=== PATIENT | female | born 1955 | race Caucasian/White ===

== ENCOUNTER → 2022-04-02 09:56 | Outpatient (CLI) | payer OTHER, SELFPAY ==
[2022-04-02 11:51] LABS: COVID19 -Nasal RAPID Negative (Negative)
== END ==
PROVIDERS: Referring Provider Orthopaedic Surgery Foot and Ankle Surgery; Visit Provider Orthopaedic Surgery Foot and Ankle Surgery
DX: Z20.822 Contact with and (suspected) exposure to COVID-19 (principal)
CPT/HCPCS: 87635; C9803

== ENCOUNTER 2022-04-03 10:07 | Day surgery (SDC) | payer OTHER, SELFPAY ==
[2022-03-18 09:45] VITALS: BMI 34.0
[2022-04-03] VITALS (16 sets, daily range): BP systolic 99–119; BP diastolic 56–78; PULSE 60–110; RESP 12–18; TEMP 36.1–37.4; O2SAT 82–96; BMI 34.7
--- NOTE | 2022-04-03 06:00 | DI.RAD.S_ITS ---
PROCEDURE: XR KNEE LT 1TO2V INDICATIONS: prosthesis placement TECHNIQUE: 2 view(s) of the knee acquired. COMPARISON: None. FINDINGS: Bones: Patient is status post knee joint arthroplasty. Hardware components are in expected positions. Visualized bony structures are intact. Soft tissues: Overlying postoperative changes are noted. IMPRESSION: Postoperative knee arthroplasty changes. Dictated by: Estefany Cadena M.D. on 04/03/2022 at 19:05 Approved by: Estefany Cadena M.D. on 04/03/2022 at 19:05
[2022-04-03] MEDS: ACETAMINOPHEN 325 MG TABLET 975 MG PO (10:45)
[2022-04-03] MEDS: PREGABALIN 75 MG CAPSULE PO (10:45)
[2022-04-03] MEDS: CELECOXIB 200 MG CAPSULE PO (10:45)
[2022-04-03] MEDS: LACTATED RINGERS 1,000 ML 42 ML IV (11:04)
[2022-04-03] MEDS: LORazepam 1 MG TABLET PO ×2 (11:22→21:20)
--- NOTE | 2022-04-03 12:23 | PM.PREOP ---
Pre-operative Note COVID-19 COVID-19 status: Negative Interval Note History & Physical reviewed/Exam performed by Physician: Yes Changes to H&P: No
[2022-04-03] MEDS: CEFAZOLIN 2 GM/100 ML PREMIX 100 ML IV ×2 (13:11→21:20)
[2022-04-03] MEDS: TRANEXAMIC ACID 1,000 MG VIAL 1000 MG INJ ×2 (13:30→15:55)
--- NOTE | 2022-04-03 13:47 | SUR.OPER ---
Supine on padded OR bed, head on pillow, arms secured on padded arm boards at <90 degrees abduction, legs uncrossed, safety belt at abdomen, tape over blanket over lower right leg. DeMayo positioner used for left leg, padded with foam and secured with coban
[2022-04-03] MEDS: BUPIVACAINE 0.25% (PF) 60 ML, EPINEPHrine 0.3 MG INJ (14:40)
[2022-04-03] MEDS: BUPIVACAINE LIPOSOME 266 MG/20 ML VIAL INJ (14:41)
[2022-04-03] MEDS: MORPHINE 4 MG/ML INJ SUBCUT (14:44)
[2022-04-03] MEDS: fentaNYL 100 MCG/2 ML INJ IV (17:00)
--- NOTE | 2022-04-03 17:02 | PM.OP.1 ---
Operative Date/Time/Diagnoses Date of procedure: 04/03/22 Time of procedure: 13:30 Pre-op diagnosis: Left knee arthritis M17.12 Body mass index 34 adult Post-op diagnosis: same Procedure & Clinicians Procedure: Left knee replacement CPT code 78672 Same procedure as scheduled: Yes Indications: Patient is a 66-year-old female with end-stage left knee arthritis. She has failed an exhaustive course of conservative treatment with therapy, braces and injections. She has been indicated for left total knee replacement. She has been medically optimized. The risks and benefits of the procedure have been discussed with the patient and given the opportunity to ask questions. The risks of surgery include but are not limited to infection, malunion, nonunion, persistence of pain, damage to nerves and blood vessels, posttraumatic arthritis, DVT, PE, coardiopulmonary complications and . The patient expressed a thorough understanding of the risks and benefits of surgery and has elected to proceed. Consent was signed in the office. During the operation, the services of a physician surgical instruments inspector were medically indicated and necessary to provide the exposure of the operative site for the surgical procedure and to maintain the limb in a proper position to carry out the operation safely and efficiently. Without a qualified assistant at surgery being present this would extended the operative procedure and made the procedure technically more difficult to perform. Surgeon: Guillermina Herrera Shift Engineer: Syl Pinto Anesthesia Type: General and Local Operative Notes Findings: End-stage left knee arthritis [id number] arthritis medial compartment patellofemoral compartments. Diminutive medial condyle Closure Type: primary Specimen(s): none sent Prosthetic devices, grafts, tissues, transplants, or devices: Sharma and nephew Journey 2 bcs femur bi cruciate stabilized Oxinium size 5 left Tibia size for left Journey nonporous Poly left size 3 for 10 mm journey bcs 2 Patella round 35 mm salvador 2, 9 mm thick Estimated Blood Loss (mL): 50 Blood products transfused: none Tourniquet time (min): 130 Procedure in detail: Patient was seen in the preoperative area where the patient and site of surgery were identified in the operative knee was marked informed consent confirmed. This was the left knee. Patient received the appropriate preoperative antibiotics this was 2 g of Ancef. And other preoperative medications and was taken to the operating room placed on operating table in the supine position. Spinal anesthetic were administered. The operative extremity was then prepped and draped in the standard sterile fashion with a nonsterile tourniquet high on the thigh. Patient was placed on the green foam bolsters. A lateral post was placed at the level of the proximal thigh /trochanter area as a lateral post. Formal time-out procedure was performed confirming the patient's side and site of surgery and administration of appropriate preoperative antibiotics and implants were in the room accounted for. All were in agreement. Patient received a preoperative dose of tranexamic acid and then a 2nd dose at tourniquet release Patient was prepped and draped in the standard sterile fashion and the foot was placed into the [facility] leg ortiz. This was taken into high flexion and the incision was marked out over the anterior knee to the level of the medial tubercle tubercle. The Esmarch was then used for exsanguination and the tourniquet was inflated to 250 mmHg. Was made through the skin and subcutaneous tissue in high flexion this was then brought down into 30? of flexion for the medial parapatellar arthrotomy. A marker pen was used to dominick the arthrotomy site for later repair. Joint fluid was evacuated. The anterior osteophytes and soft tissues were removed. Routine medial release was initially made along the medial proximal tibia with Bovie. The patella was on quite a bit of tension on attempted eversion so the quad incision was lengthened to relax it and then the patella was 1st cut using the saw sized and prepped and then subluxed throughout the case and protected. The leg was then taken into extension and the patella was everted and the patella was cut to accommodate the patellar button. This was sized to a 35 mm button for a 9 mm thickness to recreate the original dimensions of the patella. Poly was removed and the protector replaced and the patella was subluxed and the knee was taken back up into flexion and attention was returned to the femur. Then the rotational landmarks of Whitesides line and the trans epicondylar axis were marked on the femur with electrocautery. Then the intramedullary guide for the femur was created. The distal femoral cut was made in 6? of valgus using the intramedullary guide with the cut setting on 0+ as the patient did not have a preoperative flexion contracture. The ACL and PCL released. The proximal tibia was then cut using the intramedullary guide, taking 9 mm off the less involved side this was the lateral plateau. The John wing was used to check the slope through the guide. Second pass was made through the tibial cut guide with the saw after the cut tibia was removed plane down about 1 more mm and further smooth then the resection surface. In extension the remainders of the medial and lateral menisci were removed. The extension flexion gaps were then checked using both the flexion extension blocks. A 9 mm poly block fit great in extension with no laxity but was noted to be loose medially in flexion. On inspection was noted that the medial condyle was comparatively diminutive, there was taking setting the rotation at 2? and using an osteotome under the foot pad of the rotation guide to keep it off the medial condyle and it was placed flush with the lateral condyle to purposely take less of the already diminutive medial condyle. The block was then pinned in place in line with Whitesides line and with a rotation at 0 and 2 degrees. This was pinned in place and then the size block placed. This was sized to a size 5 femur. And the overall appearance of loss on the femur lined up and a nice rectangular space with the tibia cut. This was referenced off the lateral posterior condyle with 2? external rotation accommodating for the diminutive medial condyle. This measured a size 5. Cut block was then placed and the anterior, posterior and chamfer cuts were then made. The posterior osteophytes and soft tissues were then removed. Then in extension the posterior capsule was injected with a mixture of 40 mL of 0.25% Marcaine and 20 mL of Exparel care to avoid excessive injection posterior laterally. The remainder of this was saved for the capsule and subcutaneous tissue and placed during cement curing. Attention was then returned to the tibia and this was prepared with the rotation set by the extramedullary guide. Lined up with the tibial crest and the 2nd toe. The tibia was sized for a size 4. The tibial trial was then pinned in place and the trial femoral components were placed. Then the intercondylar notch was cut through the femoral trial to create the box this was done with the distal than the proximal drill and then the box cut distally and then proximally. Next the insert was placed and the trial poly placed. A size 9 poly was used in this provided excellent stability in flexion extension without any gaps. There was a slight amount of hyperextension so this was upsized to a 10 mm poly with excellent range of motion. This was stable in flexion and extension and there was a 0-135 degree range of motion. The tibia was then finished with the drill and flange cuts and then this was removed. All trials were removed. The wound and bone was irrigated with pulsatile lavage. This was then dried with a sponge. The components were verified and opened and the cement was mixed. Cement was applied to the components and then to the bone then the tibia was cemented in place 1st followed by the femur then the patella. Excess cement was removed. With care looking around the back of the knee. Remainder of the injection was injected around the capsule. trial poly was placed back in the leg was placed into extension for the patellar cementing. After this was cured approximately 15 minutes later and the dilute Betadine solution was placed for at least 3 minutes in the wound this was then irrigated out and the final poly was placed. This was a 10 mm poly. The tourniquet was released hemostasis was achieved. Final 1 g of tranexamic acid was given IV at the time of tourniquet release. The capsule was closed with 1. Ethibond suture. Subcutaneous layer was closed with 3-0 Vicryl suture. Skin was closed with a running V lock suture Stratafix Monocryl type suture and Dermabond. An Aquacel dressing was placed. An Branden wrap was applied. Anesthetic was terminated the patient was woken from anesthesia and taken to recovery room in good condition. There no immediate complications from this procedure. The patient will be maintained on a standard total knee replacement protocol with weight-bearing as tolerated. Complications: none Post-operative Condition: stable Disposition: PACU Plan for aftercare: Weightbear as tolerated lower extremity. Discharged postop day 1 her when safe for home with physical therapy. Has a prescription already at home for oxycodone 5 mg # 40. Will need a prescription for Zofran and will take aspirin 81 mg b.i.d. for 6 weeks for DVT prophylaxis.
[2022-04-03] MEDS: OXYCODONE IR 5 MG TABLET PO ×3 (17:05→21:22)
[2022-04-03] MEDS: ONDANSETRON 4 MG/2 ML INJ IV (17:11)
[2022-04-03] MEDS: KETOROLAC 30 MG/ML VIAL IV (17:30)
[2022-04-03] MEDS: LACTATED RINGERS 1,000 ML 100 ML IV (18:10)
[2022-04-03] MEDS: hydrOXYzine pamoate 25 MG CAPSULE PO (18:30)
[2022-04-03] MEDS: ACETAMINOPHEN 325 MG TABLET 650 MG PO (18:33)
--- NOTE | 2022-04-03 19:27 | PC.NURSE ---
Pt arrived from PACU awake but with eyes closed, not being able to keep eyes open but moaning and whimpering in pain. VSS, afebrile 02 placed 2 (LNC) for support, pt with hx of ALDO. She is given scheduled tylenol, hydroxizine and 0.2mg IV morphine. she is easily arouseable but resting comfortably after prn medication. MD at bedside evaluating patient. LR running at 100ml/hr ICe pack to Knee. SCD's on. Occasionally she hollars out and moans AHHHH and then drifts back to sleep. Endorsed admission to oncoming shift.
[2022-04-03] MEDS: FLUoxetine 20 MG CAPSULE 60 MG PO (21:14)
[2022-04-03] MEDS: PANTOPRAZOLE DR 20 MG TABLET PO (21:14)
[2022-04-03] MEDS: DOCUSATE 100 MG CAPSULE PO (21:20)
[2022-04-03] MEDS: ASPIRIN EC 81 MG TABLET PO (21:20)
[2022-04-03] MEDS: METFORMIN HCL 500 MG TABLET PO (21:20)
[2022-04-03] MEDS: TRAZODONE 50 MG TABLET PO (21:21)
[2022-04-03] MEDS: PRAVASTATIN 20 MG TABLET PO (21:26)
[2022-04-04] MEDS: OXYCODONE IR 10 MG TABLET PO ×5 (00:14→13:26)
[2022-04-04] MEDS: ACETAMINOPHEN 325 MG TABLET 650 MG PO ×5 (00:14→23:31)
[2022-04-04] MEDS: KETOROLAC 30 MG/ML VIAL 15 MG IV ×2 (01:51→10:13)
[2022-04-04] MEDS: HYDROMORPHONE 0.5 MG INJ 0.2 MG IV ×3 (02:00→23:31)
[2022-04-04] MEDS: hydrOXYzine pamoate 25 MG CAPSULE PO ×2 (04:17→12:59)
[2022-04-04] MEDS: CEFAZOLIN 2 GM/100 ML PREMIX 100 ML IV (04:18)
[2022-04-04 04:30] VITALS: BP 95/50; PULSE 73; RESP 16; TEMP 36.6; O2SAT 91
[2022-04-04] MEDS: LEVOTHYROXINE 100 MCG TABLET 200 MCG PO (05:46)
[2022-04-04 08:20] VITALS: BP 100/53; PULSE 75; RESP 20; TEMP 37.2; O2SAT 92
[2022-04-04] MEDS: DOCUSATE 100 MG CAPSULE PO ×2 (08:31→20:52)
[2022-04-04] MEDS: METFORMIN HCL 500 MG TABLET PO ×2 (08:31→20:53)
[2022-04-04] MEDS: ASPIRIN EC 81 MG TABLET PO ×2 (08:31→20:52)
[2022-04-04] MEDS: PANTOPRAZOLE DR 20 MG TABLET PO ×2 (08:31→20:53)
[2022-04-04 09:05] LABS: Hematocrit 30.9 % (36-46); Hemoglobin 10.2 g/dL (12.0-16.0)
--- NOTE | 2022-04-04 09:48 | P.DS_ITS ---
History of Present Illness History of Present Illness Date Patient Seen: 04/04/22 Time Patient Seen: 09:54 Chief complaint: Left knee pain s/p left TKA Narrative: Patient is complaining of moderate to severe left knee pain this morning. She is currently working with physical therapy and is very anxious and tearful. She has a history of bipolar and anxiety disorder. She is very anxious to go home today, however, during her morning session of physical therapy she is not mobilizing very well. She will work with additional physical therapy this afternoon and if she does well, she may be discharged home today. She is also having hypotension but is not complaining of dizziness or lightheadedness. Discharge Providers Provider Discharge Date: 04/04/22 Primary care physician: SAMUEL Koenig Consults: 04/03/22 18:08 Consult to Discharge Planning Routine Comment: Consult to Physical Therapy Evaluate & Treat Comment: Physician Instructions: postop TKA protocol Discharge provider: Syl Pinto PA-C Summary Hospital Course Discharge Diagnosis: Left knee arthritis M17.12 Body mass index 34 adult -history of bipolar and anxiety disorder Hospital Course: Operative Date/Time/Diagnoses Date of procedure: 04/03/22 Time of procedure: 13:30 Procedure & Clinicians Procedure: Left knee replacement CPT code 46100 Same procedure as scheduled: Yes Indications: Patient is a 66-year-old female with end-stage left knee arthritis.? She has failed an exhaustive course of conservative treatment with therapy, braces and injections.? She has been indicated for left total knee replacement.? She has been medically optimized.? The risks and benefits of the procedure have been discussed with the patient and given the opportunity to ask questions.? The risks of surgery include but are not limited to infection, malunion, nonunion, persistence of pain, damage to nerves and blood vessels, posttraumatic arthritis, DVT, PE, coardiopulmonary complications and .? The patient expressed a thorough understanding of the risks and benefits of surgery and has elected to proceed.? Consent was signed in the office. During the operation, the services of a physician surgical brace maker were medically indicated and necessary to provide the exposure of the operative site for the surgical procedure and to maintain the limb in a proper position to carry out the operation safely and efficiently.? Without a qualified assistant professor of theater being present this would extended the operative procedure and made the procedure technically more difficult to perform. Surgeon: Guillermina Herrera Flour Distributor: Syl Pinto Anesthesia Type: General and Local Operative Notes Findings: End-stage left knee arthritis [id number] arthritis medial compartment patellofemoral compartments.? Diminutive medial condyle Closure Type: primary Specimen(s): none sent Prosthetic devices, grafts, tissues, transplants, or devices: Sharma and nephgeovany Journey 2 bcs femur bi cruciate stabilized Oxinium size 5 left Tibia size for left Journey nonporous Poly left size 3 for 10 mm journey bcs 2 Patella round 35 mm salvador 2,? 9 mm thick Estimated Blood Loss (mL): 50 Blood products transfused: none Tourniquet time (min): 130 Status at Discharge Cognitive/behavioral status at discharge: at baseline, oriented Functional status at discharge: uses cane/walker Overall status at discharge: patient is progressing back to baseline Exam Vital Signs (past 8 hours): - 04/04/22 04:30 Temperature 97.8 F Pulse Rate 73 Respiratory Rate 16 Blood Pressure 95/50 L Pulse Oximetry 91 Oxygen Delivery Method Room Air Oxygen Flow Rate 2 Narrative Exam Narrative: Tearful and anxious 66-year-old female, resting comfortably in bed. Left knee dressing is clean, dry, intact. There is no surrounding erythema, induration, or hever pus. Bilateral lower extremity: Motor functions are grossly intact, sensation is grossly intact to light touch, calves are soft and nontender to palpation. Objective Labs Result Diagrams: 04/04/22 08:30 Labs: Laboratory Results - last 24 hr 04/04/22 08:30 Hgb 10.2 L Hct 30.9 L PFSH Medical History Anxiety Bipolar disorder Chronic cough Depression Diabetes Fibromyalgia GERD (gastroesophageal reflux disease) HLD (hyperlipidemia) HTN (hypertension) Hypothyroidism ALDO on CPAP Pacemaker (04/28/13) PTSD (post-traumatic stress disorder) Sciatica Surgical History History of bilateral tubal ligation History of gynecologic surgery History of nasal surgery Hx of arthroscopy of right knee Hx of bilateral breast reduction surgery Hx of bilateral cataract extraction Hx of cholecystectomy Hx of tonsillectomy S/P epidural steroid injection S/P excision of lipoma Social History household members: children Smoking Status: Former smoker alcohol intake: former Discharge Assessment & Plan Assessment and Plan Assessment: -stable status post left total knee arthroplasty -marginal pain control -hypotension, asymptomatic -history of bipolar/anxiety disorders Plan of Treatment: -mobilize with physical therapy, Weightbear as tolerated lower extremity.? -continue with multimodal pain management -aspirin 81 mg b.i.d. x6 weeks for DVT prophylaxis -Has a prescription already at home for oxycodone 5 mg # 40.? Will need a prescription for Zofran and will take aspirin 81 mg b.i.d. for 6 weeks for DVT prophylaxis.? -Discharge home today or tomorrow, depending on when she is cleared by Physical therapy. Discharge Plan Discharge Plan Patient Disposition: Home Discharge orders & Medications Discharge Orders: Discharge (Order); Ordered 04/04/22 Ordered By: Syl Pinto Prescriptions: New ondansetron 4 mg tablet,disintegrating 4 mg PO Q8H PRN (Reason: nausea and vomiting) Qty: 7 1RF aspirin 81 mg tablet,delayed release (DR/EC) 81 mg PO BID Qty: 60 0RF acetaminophen 325 mg Tablet 650 mg PO Q6HR MDD Max 3000 mg per day PRN (Reason: fever or pain) Qty: 90 0RF docusate sodium 100 mg Capsule 100 mg PO BID PRN (Reason: Constipation from narcotic pain meds) Qty: 20 0RF hydroxyzine pamoate 25 mg Capsule 25 mg PO Q6H PRN (Reason: Muscle spasm/pain/nausea) Qty: 60 0RF oxycodone 5 mg Tablet See Rx Instructions .ROUTE .COMPLEX PRN (Reason: Pain, Moderate (4-6)) Qty: 42 0RF Rx Instructions: Take 1-2 tablets by mouth every 4 hours as needed for moderate to severe postop pain ibuprofen 400 mg tablet 400 mg PO Q6H MDD Max 2400 mg per day PRN (Reason: Pain/inflammation) Qty: 90 0RF ondansetron 4 mg Tablet,Disintegrating 4 mg PO Q4HR PRN (Reason: Nausea And Vomiting) Qty: 14 0RF aspirin 81 mg Tablet,Delayed Release (Dr/Ec) 81 mg PO BID 42 Days Qty: 84 0RF Rx Instructions: Prevent blood clots Continued losartan 50 mg Tablet 100 mg PO BEDTIME metformin 500 mg Tablet 500 mg PO BID trazodone 50 mg Tablet 50 - 150 mg PO BEDTIME omeprazole 20 mg Capsule,Delayed Release(Dr/Ec) 20 mg PO BID levothyroxine 200 mcg Tablet 200 mcg PO DAILY pravastatin 20 mg Tablet 20 mg PO BEDTIME lorazepam 1 mg Tablet 1 mg PO BID fluoxetine 60 mg Tablet 60 mg PO BEDTIME Follow up/Referrals: Guillermina Herrera MD [Physician] - (10-14 days as scheduled for her postoperative visit) Juliann Douglas ARNP [Primary Care Provider] - Diet/Activity/Treatments Diet: Diet as Tolerated Other treatments: Medications: -Aspirin 81mg twice daily x6 weeks to prevent blood clots. -OTC Tylenol 500 mg 1 tablet every 4 hours as needed for pain/fever. Max 6 tablets per day. -Ibuprofen 400 mg 1 tablet every 4 hours as needed for pain/inflammation. Max 2,400 mg per day. -Oxycodone 5 mg take 1-2 tablets every 4 hours as needed for moderate-severe pain (narcotic pain medication). -Vistaril (hydroxyine) 25mg 1 tab every 4 hours as needed for spasms/pain/nausea. -As needed medications: -Ducolax and /or MiraLax as needed for constipation from narcotic pain medications. -Pepcid AC as needed for stomach upset (usually from aspirin or ibu profen). Dressing/Wound care: -Remove the Branden wrap 48 hours after surgery. -Keep Aquacell dressing in place until postoperative follow-up office visit. -Okay to shower. Keep wound out of direct water stream. No soaking or submerging until all the scabs fall off (approximately 4-6 weeks). -No lotions, ointments, or scar creams directly to the incision until the wound is healed (4-6 weeks), -Please call the office if dressing becomes wet, soiled, or saturated. Activities: -Weight-bearing as tolerated. Use front wheeled walker, and progress to cane when safe. -Continue with home exercises as directed by your physical therapist. -Elevate ?toes above the nose if you have significant swelling in your lower leg. (A wedge pillow is easiest.) -Ice your incision as needed for pain/inflammation/swelling. Protect your skin with a folded pillowcase. -Incentive Spirometer (breathing device from hospital): 5-10xs every hour while awake for the first 1-2 weeks. Follow-up: -Follow-up with your surgeon or PA in the office in 10-14 days after surgery. -Follow-up with your surgeon 6 weeks postoperatively. Call the office if you have chest pain, shortness of breath, significant swelling that will not resolve with elevating, fever over 101?, significantly worsening pain, or are concerned you might need to go to the Emergency Room. [facility]: [phone] Skin/Wound/Dressing Care Report to your healthcare provider any signs of infection, such as:: chills, fever, night sweats, unusual drainage and unusual redness Visit Report/Discharge Packet Instructions: DI for Knee Replacement Stand Alone Forms: Surgery Discharge Discharge Data Primary Care Provider: Juliann Douglas Attending Provider: Guillermina Herrera VTE Deep Vein Thrombosis/Pulmonary Embolism Present on Admission: No
--- NOTE | 2022-04-04 10:06 | PT.IIE ---
Current Diagnoses Unilateral primary osteoarthritis, left knee (04/03/22) Surgery Performed Operation Date: 04/03/22 12:15 Actual Procedures p Total Knee Arthroplasty(Left) - Guillermina Herrera MD Surgical History (Last Reviewed 04/04/22 @ 09:56 by Syl Pinto PA-C) History of bilateral tubal ligation History of gynecologic surgery History of nasal surgery Hx of arthroscopy of right knee Hx of bilateral breast reduction surgery Hx of bilateral cataract extraction Hx of cholecystectomy Hx of tonsillectomy S/P epidural steroid injection S/P excision of lipoma Medical History (Last Reviewed 04/04/22 @ 09:56 by Syl Pinto PA-C) Anxiety Bipolar disorder Chronic cough Depression Diabetes Fibromyalgia GERD (gastroesophageal reflux disease) HLD (hyperlipidemia) HTN (hypertension) Hypothyroidism ALDO on CPAP Pacemaker (04/28/13) PTSD (post-traumatic stress disorder) Sciatica Physical Therapy Inpatient Evaluation/Re-Eval M1 PT/OT-IP Prior Functional Status Start: 04/04/22 11:23 Freq: NEEDED Status: Active Protocol: Document 04/04/22 10:06 DLM (Rec: 04/04/22 11:36 DL [id number]) Medical Review Prior Functional Status Medical History Reviewed Yes Diet/Fluid Consistency Regular Communication WFL Mobility and Gait Independent, bilateral knee pain limits her activity tolerance before surgery Activities of Daily Living and IADL's Independent with basic ADL's, lives with Daughter who helps with advanced ADL's Social History Household Members children Living Arrangements House Number of Floors (Floors) 3 or More Floors Number of Stairs To Enter/Railing? 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 Employment Status Retired Additional Social History Comment they set up the house so she can stay on the main level after surgery, she lives with her Daughter who plans to help after discharge She uses CPAP at night M2 PT-IP Current Condition Start: 04/04/22 11:23 Freq: NEEDED Status: Active Protocol: Document 04/04/22 10:06 DLM (Rec: 04/04/22 11:36 DL [id number]) Physical Therapy Current Condition Current Condition Evaluation Date 04/04/22 Treatment Diagnosis left TKA, impaired gait and mobility Onset Date 04/03/22 M3 PT-IP Subjective Start: 04/04/22 11:23 Freq: NEEDED Status: Active Protocol: Document 04/04/22 10:06 DLM (Rec: 04/04/22 11:36 DL [id number]) Subjective Physical Therapy Visit Type Type Initial Evaluation Visit Start Time 09:10 Visit Stop Time 10:06 Total Visit Minutes 54 Number of DATA ENTRY MACHINE OPERATOR Visits 0 Physical Therapy Visit Comments Patient Comments she wants to go home today, reports her pain is really bad in left thigh area, she had a lot of pain over-night Patient Goals discharge home today Therapy Pain Assessment Pain When Pain Assessed During Mobility Pain Present Pain Present Pain Reported Location left knee Intensity 10 Scale Used Numeric (0 - 10) Description Aching,Cramping,Sharp,Tender, With Movement Pain Behaviors Crying,Guarding,Holding Area, Wincing Pain Management Techniques Apply Cold,Re-positioning, Timing of Activity with Medications M4 PT-IP Mobility and Gait Start: 04/04/22 11:23 Freq: NEEDED Status: Active Protocol: Document 04/04/22 10:06 DL (Rec: 04/04/22 11:36 [facility] [id number]) PT-Bed Mobility Assessment Supine to Sit Supine to Sit Standby Assistance Sit to Supine Sit to Supine Standby Assistance Scooting Scooting to Edge of Bed Independent Scooting Up and Down in Bed Independent PT-Transfer Assessment Sit to and From Stand Sit to and from Stand Standby Assistance,Use of Upper Extremities Equipment Transfer Assistive Device Gait Belt,Front Wheeled Walker Comments Mobility Comments Supine vital signs: BP 100/58, HR 71, 96% Oxygen sat on 2 LPM of oxygen Sitting vital signs: BP 95/65, HR 74 Intermittent nausea and light- headedness with activity (no vomiting at this time). Pt gets shaking during mobility with short unsteady breathing, she reports this is due to pain. She needs verbal cues to take deep breaths. Pt frequently closes her eyes even during mobility but is not sleeping. She is able to stand with the FWW and CG/SBA Gait Assessment Gait Gait Assistance Required: Contact Guard Assist Distance (Feet) 2 Able to Maintain Weight Bearing Status Yes During Gait Assistive Devices Assistive Device Gait Belt,Front Wheeled Walker Gait Deviations General Gait Pattern Antalgic,Decreased Stride Length,Flexed Trunk Factors Limiting Gait Function Factors Limiting Gait Function Decreased Activity Tolerance, Decreased Strength,Limited Range of Motion,Pain,Poor Balance Comments Gait Comments she was able to take a few side-steps at edge of bed with complaints of significant knee pain, educated pt to use her UE's to compensate for left knee pain/weakness Stair Climbing Assessment Comments Stair Climbing Comments one step to enter the house PT-Balance Assessment Sitting Balance and Reactions Static Sitting Balance Ability Normal Dynamic Sitting Balance Ability Normal Standing Balance and Reactions Static Standing Balance Ability Good Dynamic Standing Balance Ability Good Device Used FWW M5 PT-IP Objective Assessments Start: 04/04/22 11:23 Freq: NEEDED Status: Active Protocol: Document 04/04/22 10:06 DLM (Rec: 04/04/22 11:36 DL [id number]) Orientation Orientation/Cognition Level of Alertness Alert Orientation Name,Age,Birthday,Month,Date, Year,Day of Week,Place, Situation Language Function Ability No Deficits Noted Safety Awareness Understands Safety Issues Memory Description No Deficits Noted Gross Range of Motion Upper Extremity ROM Assessment Within Functional Limits Lower Extremity ROM Assessment Left Impaired Impairments pain post-op left knee AROM left knee 0-90 degrees Strength Upper Extremity Strength Assessment Within Functional Limits Lower Extremity Strength Assessment Left Impaired Hip able to lift LE off bed for SLR but has extensor lag Knee seated knee ext 2+/5, great difficulty with short arc quad Ankle DF 4+/5 Coordination Assessment Gross Coordination Gross Coordination WNL Sensation Assessment Sensation Gross Sensation WNL Muscle Tone Muscle Tone WNL Yes M6 PT-IP Treatment Start: 04/04/22 11:23 Freq: NEEDED Status: Active Protocol: Document 04/04/22 10:06 DLM (Rec: 04/04/22 11:36 DL [id number]) Physical Therapy Treatment Exercises Exercises Ankle Pumps,Quad Sets,Heel Slides,Straight Leg Raises, Short Arc Quads,Passive Knee Extension Hang Education Education Provided Weight Bearing Status,Post-Op Packet,Safety Other Treatments Other Treatment Performed Her Daughter arrived at the end of this visit once pt back in bed. Pt is tearful about wanting to return home today. M7 PT-IP Assessment and Plan Start: 04/04/22 11:23 Freq: NEEDED Status: Active Protocol: Document 04/04/22 10:06 DLM (Rec: 04/04/22 11:36 DLM [id number]) PT Summary Assessment and Plan Potential Rehabilitation Potential Good Status of Condition at Evaluation Evolving Summary Impairments Pain,ROM,Strength,Balance,Bed Mobility,Transfers,Gait, Activity Tolerance Assessment Summary Akbar is a 66 year old female who underwent left Total knee arthroplasty on . She reports having difficulty with pain management last night and this morning. She describes being unable to eat her breakfast this morning. She is able to sit up on edge of bed, stand with the FWW and progress to side-steps at the edge of the bed. She has intermittent light-headedness but it seems to resolve with activity. She describes being limited by her left thigh area pain with intermittent cramping and sharp pain. Pt returned to bed after therapy to rest and manage her pain. Pt will continue to work with her nurse to manage her pain. Will plan to see pt again for therapy this afternoon. She is progressing slowly this morning. She will need to be safe in progressing her gait to household distances and be able to do one step to go home . Will continue to assess for discharge planning as her pain improves today. Goals Bed Mobility Goal Independent Transfer Goal Standby Assistance,Front Wheeled Walker Gait Goal Standby Assistance,Front Wheel Walker Gait Distance 100 feet Other Goals up and down one step with FWW and SBA or rail and Min assist Days to Meet Goals 2 Frequency of Treatment Frequency Of Treatment Twice a Day Treatment Plan Physical Therapy Treatment Plan Bed Mobility Training,Transfer Training,Gait Training, Therapeutic Exercise,Balance Retraining,Post Op Education, Discharge Planning,Hot or Cold Pack,Neuromuscular Re-ed Weight Bearing Status Weight Bearing Status Weight Bear as Tolerated Allowed Weight Bearing Amount (enter % left LE or #) (%) Recommendations To Nursing Amount of Assist Needed 1 Person Assist Discharge Recommendations PT Discharge Recommendations Home with Assistance, Outpatient PT Other Discharge Recommendations Her Daughter plans to assist her after discharge Transportation Needs at Discharge Private Vehicle
[2022-04-04] MEDS: LORazepam 1 MG TABLET PO ×2 (10:13→20:52)
[2022-04-04 13:07] VITALS: BP 106/60; PULSE 73; RESP 20; TEMP 36.9; O2SAT 92
--- NOTE | 2022-04-04 13:32 | PT-IP ANOTE ---
Attempted physical therapy session but pt reports she is in too much pain to get up at this time. She continues to work with nursing on main management. She has ice on her knee. Will check back later today.
--- NOTE | 2022-04-04 14:43 | CM.IDA ---
Initial DCP Assessment Note 66 yo female POD1 from left TKA; patient hopeful to return home w/family assist, outpatient therapies. Initial PT eval has cleared patient for return home; discharge likely today w/no coordination needs from this SPRINKLING SYSTEM INSTALLER JW
--- NOTE | 2022-04-04 15:07 | PT-IP ANOTE ---
Patient declined physical therapy visit. She reports her pain is too much; 10/10. She does not feel the pain medication is helping. Pt is tearful fearing she will never be able to walk. Reassured Akbar and repositioned her left LE for pain management. She still has an ice pack on her knee and it was repositioned. Notified her nurse. Pt will not be able to discharge today. Will see her for therapy again tomorrow.
--- NOTE | 2022-04-04 16:19 | PC.NURSE ---
Addendum entered by Eileen Pinto R.N. 04/04/22 18:40: around 1800(two hours after dilaudid PO) patient's pain was 4/10. she walked around with AUDIOMETRIC TECHNICIAN in the room without moaning/crying, pain was tolerable. Original Note: pt refused to get up with physical therapy this afternoon after I had given her Oxy, tylenol, dilaudid and vistaril. Pt got up to BSC and moaning/crying. notified Conner, she called . VTO to change toradol to 30mg and add dilaudid 2mg q3hr PRN.
[2022-04-04] MEDS: HYDROMORPHONE 2 MG TABLET PO ×2 (16:45→22:21)
[2022-04-04 17:15] VITALS: BP 101/57; PULSE 60; RESP 18; TEMP 37.4; O2SAT 96
[2022-04-04] MEDS: KETOROLAC 30 MG/ML VIAL IV (17:23)
[2022-04-04 20:00] VITALS: BP 106/50; PULSE 84; RESP 18; TEMP 35.9; O2SAT 92
[2022-04-04] MEDS: FLUoxetine 20 MG CAPSULE 60 MG PO (20:52)
[2022-04-04] MEDS: PRAVASTATIN 20 MG TABLET PO (20:54)
[2022-04-04] MEDS: TRAZODONE 50 MG TABLET PO (20:54)
[2022-04-05 02:00] VITALS: BP 117/60; PULSE 61; RESP 20; O2SAT 97
[2022-04-05] MEDS: KETOROLAC 30 MG/ML VIAL IV ×2 (02:07→10:29)
[2022-04-05 03:38] VITALS: BP 103/58; PULSE 77; TEMP 35.9; O2SAT 95
[2022-04-05] MEDS: OXYCODONE IR 5 MG TABLET PO (03:59)
[2022-04-05 05:15] VITALS: BP 102/64; PULSE 70; RESP 16; TEMP 36.1; O2SAT 93
[2022-04-05 05:30] VITALS: BP 106/50; PULSE 84
--- NOTE | 2022-04-05 06:26 | PC.NURSE ---
Pt has been in constant pain throughout night. Medicated w/ dilaudid as pain '10/10'. Pt desat to mid 80s, NC placed then RT called for cpap w/ o2, sats in low 90s, stable. 5 oxy given, pain stated at '5/10'. around 0600 pt transferred to bedside commode, when back in bed pain '10/10 and worst than last night'. 10 oxy given at 0630. Pt has stated 'frustration', crying and in visible stress. Pt states worries about only having a ride to go home today, daughter can only 'so much time off'. After pt talked to daughter in morning, pt in less visible distress.
[2022-04-05] MEDS: ACETAMINOPHEN 325 MG TABLET 650 MG PO (06:32)
[2022-04-05] MEDS: LEVOTHYROXINE 100 MCG TABLET 200 MCG PO (06:32)
[2022-04-05] MEDS: OXYCODONE IR 10 MG TABLET PO (06:32)
[2022-04-05 08:30] VITALS: BP 113/65; PULSE 72; RESP 20; TEMP 36.2; O2SAT 91
[2022-04-05] MEDS: METFORMIN HCL 500 MG TABLET PO (08:35)
[2022-04-05] MEDS: DOCUSATE 100 MG CAPSULE PO (08:35)
[2022-04-05] MEDS: PANTOPRAZOLE DR 20 MG TABLET PO (08:35)
[2022-04-05] MEDS: LORazepam 1 MG TABLET PO (08:35)
[2022-04-05] MEDS: ASPIRIN EC 81 MG TABLET PO (08:35)
[2022-04-05 09:21] VITALS: BP 113/65; PULSE 72; RESP 14
--- NOTE | 2022-04-05 09:28 | CM.DPC ---
DCP Discharge Home Per Ortho MD, pt is medically stable to d/c home today and no identified barriers to discharge and d/c was cancelled yesterday mostly due to pt's mental health needs (anxiety mostly) but appropriate for d/c to home today and no identified SW needs at this time. Plan: Patient to d/c home today after knee surgery and outpt PT and no further SW needs at this time. SAW Harry
--- NOTE | 2022-04-05 09:46 | PT.IPTN ---
Current Diagnoses Unilateral primary osteoarthritis, left knee (04/03/22) Surgery Performed Operation Date: 04/03/22 12:15 Actual Procedures p Total Knee Arthroplasty(Left) - Guillermina Herrera MD Physical Therapy Treatment Note M2 PT-IP Current Condition Start: 04/04/22 11:23 Freq: NEEDED Status: Active Protocol: Document 04/04/22 10:06 DLM (Rec: 04/04/22 11:36 DLM [id number]) Physical Therapy Current Condition Current Condition Evaluation Date 04/04/22 Treatment Diagnosis left TKA, impaired gait and mobility Onset Date 04/03/22 M3 PT-IP Subjective Start: 04/04/22 11:23 Freq: NEEDED Status: Active Protocol: Document 04/05/22 09:46 AW (Rec: 04/05/22 12:12 AW [id number]) Subjective Physical Therapy Visit Type Type Treatment Note Visit Start Time 09:22 Visit Stop Time 09:46 Total Visit Minutes 24 Number of ELECTRICIAN SUPERVISOR Visits 0 Physical Therapy Visit Comments Patient Comments Pt reports slightly better pain management today. She is motivated to return home. Therapy Pain Assessment Pain When Pain Assessed During Mobility Pain Present Pain Present Pain Reported Location left knee Intensity 10 Scale Used 7/10 at rest; 10/10 during mobility Description Sharp,With Movement Pain Behaviors Facial Grimacing,Guarding, Wincing Pain Management Techniques Apply Cold,Distraction,Timing of Activity with Medications M4 PT-IP Mobility and Gait Start: 04/04/22 11:23 Freq: NEEDED Status: Active Protocol: Document 04/05/22 09:46 AW (Rec: 04/05/22 12:12 AW [id number]) PT-Bed Mobility Assessment Supine to Sit Supine to Sit Standby Assistance PT-Transfer Assessment Sit to and From Stand Sit to and from Stand Standby Assistance,Use of Upper Extremities Equipment Transfer Assistive Device Gait Belt,Front Wheeled Walker Transfers Transfer Destination Bed,Toilet Transfer Technique ambulated with FWW Transfer Ability Level of Assist Contact Guard Assistance Comments Mobility Comments Pt was lying in bed as PT arrived. Educated pt on ROM exercises and encouraged her to lie with her leg flat to encourage knee extension. She sat up EOB SBA and used FWW to stand SBA with heavy use of UE's. She ambulated to the toilet with FWW CGA. She had intermittent sharp pain with what she described as left knee hyperextension. She transferred to and from the toilet CGA and walked back to the bed with FWW CGA. She stood again SBA and used FWW to approach the platform step at foot of bed. She needed no more than CGA and cues to step up and down with FWW. She returned to sitting EOB and was left with call light in reach. Gait Assessment Gait Gait Assistance Required: Contact Guard Assist Distance (Feet) 25 Able to Maintain Weight Bearing Status Yes During Gait Assistive Devices Assistive Device Gait Belt,Front Wheeled Walker Gait Deviations General Gait Pattern Antalgic,Decreased Stride Length,Flexed Trunk Factors Limiting Gait Function Factors Limiting Gait Function Decreased Activity Tolerance, Decreased Strength,Limited Range of Motion,Pain,Poor Balance Comments Gait Comments Educated pt on recommendation for FWW at this time as she is heavily dependent on UEs to offload LLE. Stair Climbing Assessment Evaluation Level of Assist On Stairs Contact Guard Assistance Devices Stair Climbing Assistive Devices Front Wheel Walker Technique/Endurance Stair Climbing Technique Step to Step Number of Steps Climbed 1 Stair Climbing Set # Repetitions (reps) 1 Comments Stair Climbing Comments CGA and cues for sequencing as noted in mobility comments. PT-Balance Assessment Standing Balance and Reactions Static Standing Balance Ability Good Dynamic Standing Balance Ability Fair Device Used FWW M5 PT-IP Objective Assessments Start: 04/04/22 11:23 Freq: NEEDED Status: Active Protocol: Document 04/04/22 10:06 DL (Rec: 04/04/22 11:36 DL [id number]) Orientation Orientation/Cognition Level of Alertness Alert Orientation Name,Age,Birthday,Month,Date, Year,Day of Week,Place, Situation Language Function Ability No Deficits Noted Safety Awareness Understands Safety Issues Memory Description No Deficits Noted Gross Range of Motion Upper Extremity ROM Assessment Within Functional Limits Lower Extremity ROM Assessment Left Impaired Impairments pain post-op left knee AROM left knee 0-90 degrees Strength Upper Extremity Strength Assessment Within Functional Limits Lower Extremity Strength Assessment Left Impaired Hip able to lift LE off bed for SLR but has extensor lag Knee seated knee ext 2+/5, great difficulty with short arc quad Ankle DF 4+/5 Coordination Assessment Gross Coordination Gross Coordination WNL Sensation Assessment Sensation Gross Sensation WNL Muscle Tone Muscle Tone WNL Yes M6 PT-IP Treatment Start: 04/04/22 11:23 Freq: NEEDED Status: Active Protocol: Document 04/05/22 09:46 AW (Rec: 04/05/22 12:12 AW [id number]) Physical Therapy Treatment Exercises Exercises Quad Sets,Heel Slides,Short Arc Quads,Passive Knee Extension Hang Education Education Provided Safety Other Treatments Other Treatment Performed Educated pt and her daughter on use of gait belt and need for CGA with transfers and gait using FWW. M7 PT-IP Assessment and Plan Start: 04/04/22 11:23 Freq: NEEDED Status: Active Protocol: Document 04/05/22 09:46 AW (Rec: 04/05/22 12:12 AW [id number]) PT Summary Assessment and Plan Summary Impairments Pain,ROM,Strength,Balance,Bed Mobility,Transfers,Gait, Activity Tolerance Progress Towards Goals Slow Progress due to Pain Assessment Summary Akbar is POD2 from L TKA today. She needed CGA to walk 25 feet with FWW and transfer to the toilet. She was able to ascend/descend platform step with FWW CGA. She and her daughter understand recommendation for FWW and CGA at this time. Pt is safe to discharge home with family assist and outpatient PT when medically stable. Goals Bed Mobility Goal Independent Transfer Goal Standby Assistance,Front Wheeled Walker Gait Goal Standby Assistance,Front Wheel Walker Gait Distance 100 feet Other Goals up and down one step with FWW and SBA or rail and Min assist Days to Meet Goals 2 Frequency of Treatment Frequency Of Treatment Twice a Day Treatment Plan Physical Therapy Treatment Plan Bed Mobility Training,Transfer Training,Gait Training, Therapeutic Exercise,Balance Retraining,Post Op Education, Discharge Planning,Hot or Cold Pack,Neuromuscular Re-ed Weight Bearing Status Weight Bearing Status Weight Bear as Tolerated Allowed Weight Bearing Amount (enter % left LE or #) (%) Recommendations To Nursing Amount of Assist Needed 1 Person Assist Discharge Recommendations PT Discharge Recommendations Home with Assistance, Outpatient PT Transportation Needs at Discharge Private Vehicle
[2022-04-05 09:51] LABS: Alanine Aminotransferase 39 IU/L (<35); Albumin 3.6 g/dL (3.5-5.0); Albumin Globulin Ratio 1.2 (1.0-2.8); Alkaline Phosphatase 117 U/L (38-126); Aspartate Aminotransferase 41 IU/L (14-36); BUN Creatinine Ratio 29.3 (6-22); Bilirubin Total 0.8 mg/dL (0.2-1.3); Blood Urea Nitrogen 27 mg/dL (7-17); Calcium 8.7 mg/dL (8.4-10.2); Carbon Dioxide 32 mmol/L (22-32); Chloride 96 mmol/L (98-107); Estimated Glomerular Filt Rate > 60 mL/min (>60); Globulin 3.1 g/dL (1.7-4.1); Glucose 136 mg/dL (80-110); HEMOLYSIS < 15 (0-50); Sodium 134 mmol/L (137-145); Total Protein 6.7 g/dL (6.3-8.2)
--- NOTE | 2022-04-05 12:23 | PC.NURSE ---
10:22 Pt dressed and ready for d/c home to be transported via pov by daughter. Iv removed and no tele. Discussed d/c instructions with pt and answered questions. Provided knee surgery postop education, stroke s/s, fall prevention education and opioid use education. Pt denied having medications held at the pharmacy here and denies having valuables held in the safe here. Pt taken out at 11:02 via wheel chair by PROGRAM REVIEW DIRECTOR with all belongings.
== END 2022-04-05 11:02 | disposition home or self-care (01) ==
LOC: OR 10:08 → AC 10:09
PROVIDERS: Physician Assistant; PCP Registered Nurse; Referring Provider Orthopaedic Surgery Foot and Ankle Surgery; Visit Provider Orthopaedic Surgery Foot and Ankle Surgery
PROC: 0SRD0JZ Replacement of Left Knee Joint with Synthetic Substitute, Open Approach (ICD-10-PCS; CPT 27447; principal; 2022-04-03 12:15)
DX: M17.12 Unilateral primary osteoarthritis, left knee (principal); E66.9 Obesity, unspecified; Z68.34 Body mass index [BMI] 34.0-34.9, adult
CPT/HCPCS: 27447; 36415; 73560; 80053; 82962; 85014; 85018; 97110; 97116; 97162; 97530; C1776; C1713; C9290; J0171; J0690; J1170; J1885; J2270; J2405; J2704; J3010

== ENCOUNTER → 2022-05-28 12:16 | Outpatient (CLI) | payer OTHER, SELFPAY ==
[2022-04-03 18:10] VITALS: BMI 34.7
[2022-05-28 13:37] LABS: COVID19 -Nasal RAPID Negative (Negative)
== END ==
PROVIDERS: PCP Registered Nurse; Referring Provider Orthopaedic Surgery Foot and Ankle Surgery; Visit Provider Orthopaedic Surgery Foot and Ankle Surgery
DX: Z20.822 Contact with and (suspected) exposure to COVID-19 (principal)
CPT/HCPCS: 87635; C9803

== ENCOUNTER 2022-05-30 11:13 | Observation (INO) | payer OTHER, SELFPAY ==
[2022-04-03 18:10] VITALS: BMI 34.7
[2022-05-27 07:52] VITALS: BMI 34.7
[2022-05-29] VITALS (13 sets, daily range): BP systolic 109–126; BP diastolic 65–83; PULSE 60–98; RESP 11–19; TEMP 36.4–37.1; O2SAT 92–98; BMI 34.7
--- NOTE | 2022-05-29 08:09 | DI.RAD.S_ITS ---
PROCEDURE: XR KNEE RT 1TO2V INDICATIONS: postop tka TECHNIQUE: 2 view(s) of the knee acquired. COMPARISON: [facility], CR, XR KNEE LT 1TO2V, 04/03/2022, 17:26. FINDINGS: Bones: Patient is status post knee joint arthroplasty. Hardware components are in expected positions. Visualized bony structures are intact. Soft tissues: Overlying postoperative changes are noted. IMPRESSION: Postoperative knee arthroplasty. Dictated by: Estefany Cadena M.D. on 05/29/2022 at 16:14 Approved by: Estefany Cadena M.D. on 05/29/2022 at 16:14
[2022-05-29] MEDS: CELECOXIB 200 MG CAPSULE PO (09:30)
[2022-05-29] MEDS: PREGABALIN 75 MG CAPSULE PO (09:30)
[2022-05-29] MEDS: LACTATED RINGERS 1,000 ML 84 ML IV ×2 (09:30→14:08)
[2022-05-29] MEDS: ACETAMINOPHEN 325 MG TABLET 975 MG PO (09:31)
--- NOTE | 2022-05-29 12:32 | PM.PREOP ---
Pre-operative Note COVID-19 COVID-19 status: Negative Interval Note History & Physical reviewed/Exam performed by Physician: Yes Changes to H&P: No
[2022-05-29] MEDS: CEFAZOLIN 2 GM/100 ML PREMIX 100 ML IV ×2 (13:00→21:04)
[2022-05-29] MEDS: TRANEXAMIC ACID 1,000 MG VIAL 1000 MG INJ ×2 (13:08→14:56)
[2022-05-29] MEDS: BUPIVACAINE LIPOSOME 266 MG/20 ML VIAL INJ (13:23)
[2022-05-29] MEDS: BUPIVACAINE 0.5% W/ EPI (PF) 30 ML VIAL INJ (13:24)
--- NOTE | 2022-05-29 13:29 | SUR.OPER ---
Supine on padded OR bed. Pillow under head, arms secured on padded armboards <90 degree abduction. Safety belt across torso. Non-operative leg secured with tape over blanket over lower leg. Operative leg secured in [employer] positioner. Foam padded brace at thigh of operative leg.
[2022-05-29] MEDS: fentaNYL 100 MCG/2 ML INJ IV ×2 (15:54→16:05)
[2022-05-29] MEDS: OXYCODONE IR 5 MG TABLET PO ×2 (16:02→17:34)
[2022-05-29] MEDS: KETOROLAC 30 MG/ML VIAL IV ×2 (16:26→17:34)
[2022-05-29] MEDS: ACETAMINOPHEN 325 MG TABLET 650 MG PO (17:33)
[2022-05-29] MEDS: LACTATED RINGERS 1,000 ML 100 ML IV (17:34)
[2022-05-29] MEDS: HYDROMORPHONE 0.5 MG INJ 0.2 MG IV ×2 (18:36→20:00)
--- NOTE | 2022-05-29 19:29 | P.OP_ITS ---
Operative Date/Time/Diagnoses Date of procedure: 05/29/22 Time of procedure: 13:00 Pre-op diagnosis: Right knee arthritis M17.11 Post-op diagnosis: same Procedure & Clinicians Procedure: Right knee replacement, total CPT code 80982 Same procedure as scheduled: Yes Indications: Patient is a 66-year-old female with end-stage right knee arthritis. She is failed an exhaustive course of conservative treatment with therapy, braces, injections. She is been indicated for right total knee replacement. She is been medically optimized. The risks and benefits of the procedure have been discussed with the patient they have been given the opportunity to ask questions. The risks include but are not limited to infection, malunion nonunion, persistent pain, damage to nerves and blood vessels, posttraumatic arthritis, DVT, PE, cardiopulmonary complications and . The patient expressed a thorough understanding of the risks and benefits of surgery and has elected to proceed. Consent was signed. During the operation, the services of a physician surgical appliances salesperson were medically indicated and necessary to provide the exposure of the operative site for the surgical procedure and to maintain the limb in a proper position to carry out the operation safely and efficiently. Without a qualified human resources benefits assistant being present this would extended the operative procedure and made the procedure technically more difficult to perform. Surgeon: Guillermina Herrera Manager Commission: Syl Pinto Anesthesia Type: General, Spinal and Local Operative Notes Findings: End-stage right knee arthritis with cartilage loss medial and lateral compartments as well as patellofemoral compartment. Full-thickness. Closure Type: primary Specimen(s): none sent Prosthetic devices, grafts, tissues, transplants, or devices: Sharma and nephew journey 2 BCS femur bi cruciate stabilized Oxinium size 6 right Tibia size 5 Poly 11 mm Patella 35 round 7.5mm Estimated Blood Loss (mL): 50 Blood products transfused: none Tourniquet time (min): 94 Procedure in detail: Patient was seen in the preoperative area where the site of surgery was identified and marked. This was the right knee. The patient received appropriate preoperative antibiotics was 2 g of Ancef. The other preoperative medications were given as well. Patient was then brought to the operating room and placed supine position. A spinal anesthetic was administered by the anesthesia team. Next the operative extremities prepped and draped in the standard sterile fashion with a nonsterile tourniquet high on the thigh. Patient was placed on the green foam bolsters. The lateral post was placed at the level of the proximal thigh trochanter areas a lateral post. A formal time- out procedure was completed confirming the patient's side and site of surgery administration of appropriate preoperative antibiotics and the implants were in the room accounted for. All were in agreement. Patient received a preoperative dose of tranexamic acid and then a 2nd dose at tourniquet release. The leg was then placed into the DeMayo leg ortiz. This was taken into flexion and the incision was marked out over the anterior knee at the level of the medial tibial tubercle up to above the superior patellar pole. The Esmarch was then used for exsanguination the tourniquet inflated to 250 mmHg. Incision was made through the skin and subcutaneous tissue high flexion then this was brought down to 30? of flexion for the medial parapatellar arthrotomy. A marker pen was used to dominick the arthrotomy site for later repair. Fluid was evacuated. A nterior osteophytes and soft tissues were removed. A routine medial release was completed initially along the medial proximal tibia with a Bovie. The patella was 1st cut and prepped after sizing and then subluxed throughout the case and protected. This was cut and sized to a 35 mm patella and then prepped and measurements indicated at least 14 mm of good bone left and decision was made to use a 7.5 button. At this was left off and the patella protector was placed on until the end of case. The knee was taken back up into flexion and attention returned to the femur. The rotational landmarks of Whitesides line and the trans epicondylar axis were marked out on the femur with electrocautery. Then the intramedullary guide for the femur was drilled. The distal femoral cut was made in 6? of valgus using the intramedullary guide the cut setting 0 as the patient did not have a preoperative flexion contracture. The ACL and PCL were released. Proximal tibia was then cut using the intramedullary guide taking 7 mm off the less worn side which was the medial tibial plateau. Doing was used to check the slope through the guide. A 2nd pass was made through the tibial cut to achieve a fu rther planed down and smooth resection surface. Then in extension the remainders of the medial and lateral menisci were removed. The extension and flexion gaps were checked with the blocks. A 10 mm poly felt good there was a little bit of hyperextension and so this was upsized to 11 mm which provided excellent stability in flexion and extension. Attention was returned to the femur the Sizer block was placed on rotation of 0 and 3? were utilized. This lined up well with Yakelin's line. And the femur was sized to a size 6. Cut block was placed and the 1 and 5 cuts were then made. Some bone was retained and placed into the canal of the femur. Posterior osteophytes and soft tissues were then removed. In extension the posterior capsule was injected with care not to inject the posterolateral quadrant. This was a mixture of 40 mL of 0.25% Marcaine and 20 mL of Exparel. The fracture this was injected posteriorly with the remainder safe for the capsule and subcutaneous tissue. Attention was then returned to the tibia this was repaired with a the intramedullary guide. Then the extramedullary guide was dropped and lined up with the tibial crest and 2nd toe. The tibia was sized for a size 5. Rotation was marked. The tibial trial was then pinned in place and the trial femoral component it is were placed. The intercondylar notch was prepped with the box Reamer and osteotome. Next the insert for the trial poly was placed. Again at 11 was selected to provide excellent stability in flexion and extension and there was range of motion 0 to least 135?. Next the tibia was finished with a drill and flange cut and then this was removed and all of the components were removed. The bone was irrigated with the pulsatile lavage. This was then dried with a sponge. The components were verified and opened and the cement was mixed. Cement was applied to the components and then to the bone. The tibia was cemented in 1st followed by the femur then the patella. Excess cement was removed. Care was taken to look around the back of the knee. The trial poly was placed back in the leg was placed in extension for patellar cementing. Cement was allowed to cure 15 minutes then a dilute Betadine solution was placed for at least 3 minutes and then this was irrigated out and the final poly placed. This was an 11 mm poly. Tourniquet was released and hemostasis was achieved. The final g of tranexamic acid was given at the time of tourniquet release. The capsule was closed with an 1. Ethibond. Subcutaneous layer was closed with 3-0 Vicryl suture. Skin was closed with a running V lock suture Stratafix Monocryl type suture and with Dermabond. An Aquacel dressing was placed. An Branden wrap was applied. The anesthetic was terminated and the patient was woken from a nesthesia and taken to recovery room in good condition. There no immediate complications from this procedure. The patient will be maintained on a standard total knee replacement protocol with weight-bearing as tolerated. And x-rays were taken in the postoperative unit. Complications: none Post-operative Condition: stable Disposition: PACU Plan for aftercare: Weightbear as tolerated right lower extremity. Plan for discharge postop day 1 when safe for home. Patient has been issued prescriptions. Will use aspirin b.i.d. for 6 weeks for DVT prophylaxis.
[2022-05-29] MEDS: TRAZODONE 50 MG TABLET 100 MG PO (21:04)
[2022-05-29] MEDS: DOCUSATE 100 MG CAPSULE PO (21:04)
[2022-05-29] MEDS: ASPIRIN EC 81 MG TABLET PO (21:04)
[2022-05-29] MEDS: lamoTRIgine 100 MG TABLET 375 MG PO (21:04)
[2022-05-29] MEDS: FLUoxetine 20 MG CAPSULE 60 MG PO (21:06)
[2022-05-29] MEDS: LOSARTAN 50 MG TABLET 100 MG PO (21:06)
[2022-05-29] MEDS: PANTOPRAZOLE DR 20 MG TABLET PO (21:07)
[2022-05-29] MEDS: OXYCODONE IR 10 MG TABLET PO (21:07)
[2022-05-29] MEDS: LORazepam 1 MG TABLET PO (21:08)
[2022-05-29] MEDS: METFORMIN HCL 500 MG TABLET PO (21:08)
[2022-05-29] MEDS: PRAVASTATIN 20 MG TABLET PO (21:08)
[2022-05-30] VITALS: BP 99/61; PULSE 60; RESP 16; TEMP 36.1; O2SAT 96
[2022-05-30] MEDS: ACETAMINOPHEN 325 MG TABLET 650 MG PO ×3 (00:04→12:14)
[2022-05-30] MEDS: KETOROLAC 30 MG/ML VIAL IV ×3 (00:05→11:09)
[2022-05-30] MEDS: OXYCODONE IR 5 MG TABLET PO (00:29)
[2022-05-30 04:00] VITALS: BP 108/47; PULSE 70; RESP 17; TEMP 37; O2SAT 97
[2022-05-30] MEDS: HYDROMORPHONE 0.5 MG INJ 0.2 MG IV ×2 (04:12→06:52)
[2022-05-30] MEDS: OXYCODONE IR 10 MG TABLET PO ×3 (04:13→11:09)
[2022-05-30] MEDS: CEFAZOLIN 2 GM/100 ML PREMIX 100 ML IV (04:37)
[2022-05-30 04:39] LABS: Hematocrit 31.5 % (36-46); Hemoglobin 10.2 g/dL (12.0-16.0)
[2022-05-30] MEDS: LEVOTHYROXINE 100 MCG TABLET 200 MCG PO (05:07)
[2022-05-30] MEDS: PANTOPRAZOLE DR 20 MG TABLET PO (06:53)
[2022-05-30] MEDS: ONDANSETRON 4 MG ODT PO (07:54)
[2022-05-30 08:00] VITALS: BP 125/75; PULSE 73; RESP 20; TEMP 36.2; O2SAT 96
--- NOTE | 2022-05-30 08:39 | P.PN_ITS ---
Subjective Subjective Date Patient Seen: 05/30/22 Time Patient Seen: 08:39 Interval history: Pain is moderate to severe. Denies fever chills. No nausea or vomiting. No shortness of breath or chest pain. Exam Vital Signs (past 8 hours): - 05/30/22 04:00 Temperature 98.6 F Pulse Rate 70 Respiratory Rate 17 Blood Pressure 108/47 L Pulse Oximetry 97 Oxygen Flow Rate 2 Oxygen Delivery Method Nasal Cannula Oxygen Flow Rate 2 Narrative Exam Narrative: 66-year-old female resting comfortably in bed in no apparent distress. Dressing is clean, dry and intact. Motor functions intact bilateral lower extremities. Sensation grossly intact to light touch bilateral lower extremities. Const General: cooperative and comfortable Nutritional Appearance: well nourished Resp Effort & Inspection: normal respiratory effort and able to speak in complete sen tences Objective Labs Result Diagrams: 05/30/22 04:15 Labs: Laboratory Results - last 24 hr 05/30/22 04:15 Hgb 10.2 L Hct 31.5 L PFSH Medical History Anxiety Bipolar disorder Chronic cough Depression Diabetes Fibromyalgia GERD (gastroesophageal reflux disease) HLD (hyperlipidemia) HTN (hypertension) Hypothyroidism ALDO on CPAP Pacemaker (04/28/13) PTSD (post-traumatic stress disorder) Sciatica Surgical History History of bilateral tubal ligation History of gynecologic surgery History of nasal surgery History of total left knee replacement (04/03/22) Hx of arthroscopy of right knee Hx of bilateral breast reduction surgery Hx of bilateral cataract extraction Hx of cholecystectomy Hx of tonsillectomy S/P epidural steroid injection S/P excision of lipoma Social History household members: children Smoking Status: Former smoker alcohol intake: former Assessment & Plan Post-op Postoperative Procedures: Procedures Operation Date: 05/29/22 10:45 Actual Procedure Side Surgeon p Total Knee Arthroplasty Right Guillermina Herrera MD Postoperative day: 1 Postoperative status narrative: Status post right total knee arthroplasty May 29, 2022 currently requiring intermittent uses 2 L oxygen per nasal dev deepti Postoperative plan narrative: Multimodal pain management Weight-bearing as tolerated Aspirin 81 mg b.i.d. for 6 weeks for DVT prophylaxis Disposition, likely home today or tomorrow Quality VTE Deep Vein Thrombosis/Pulmonary Embolism Present on Admission: No
[2022-05-30] MEDS: ASPIRIN EC 81 MG TABLET PO (08:58)
[2022-05-30] MEDS: LORazepam 1 MG TABLET PO (08:58)
[2022-05-30] MEDS: METFORMIN HCL 500 MG TABLET PO (08:58)
[2022-05-30] MEDS: DOCUSATE 100 MG CAPSULE PO (08:58)
--- NOTE | 2022-05-30 09:50 | PT.IIE ---
Current Diagnoses Unilateral primary osteoarthritis, right knee (05/29/22) Surgery Performed Operation Date: 05/29/22 10:45 Actual Procedures p Total Knee Arthroplasty(Right) - Guillermina Herrera MD Surgical History (Last Reviewed 05/30/22 @ 12:10 by Gustavo Waldron PA-C) History of bilateral tubal ligation History of gynecologic surgery History of nasal surgery History of total left knee replacement (04/03/22) Hx of arthroscopy of right knee Hx of bilateral breast reduction surgery Hx of bilateral cataract extraction Hx of cholecystectomy Hx of tonsillectomy S/P epidural steroid injection S/P excision of lipoma Medical History (Last Reviewed 05/30/22 @ 12:10 by Gustavo Waldron PA-C) Anxiety Bipolar disorder Chronic cough Depression Diabetes Fibromyalgia GERD (gastroesophageal reflux disease) HLD (hyperlipidemia) HTN (hypertension) Hypothyroidism ALDO on CPAP Pacemaker (04/28/13) PTSD (post-traumatic stress disorder) Sciatica Physical Therapy Inpatient Evaluation/Re-Eval M1 PT/OT-IP Prior Functional Status Start: 05/30/22 12:43 Freq: NEEDED Status: Active Protocol: Document 05/30/22 09:50 AB (Rec: 05/30/22 12:57 AB [id number]) Medical Review Prior Functional Status Medical History Reviewed Yes Communication able to make needs known Mobility and Gait pt stated that she is independent with all mobilities and ambulation without AD Social History Household Members children Living Arrangements House Number of Floors (Floors) 3 or More Floors Number of Stairs To Enter/Railing? no steps to enter; pt stated that she can stay on main level of the house but prefers to go down basement bedroom with 13 steps with R rail desceding Home Environment High Toilet,Walk in Shower Home Equipment Front Wheel Walker,Four Wheel Walker,Straight Cane,Hand Held Shower,Grab Bars In Shower Additional Social History Comment pt has an adjustable bed, 3WW pt stated that she will not take a shower for a few weeks and will just sponge bathe M2 PT-IP Current Condition Start: 05/30/22 12:43 Freq: NEEDED Status: Active Protocol: Document 05/30/22 09:50 AB (Rec: 05/30/22 12:57 AB [email or web address]) Physical Therapy Current Condition Current Condition Evaluation Date 01/14/23 Treatment Diagnosis s/p R TKA; difficulty in walking Onset Date 05/29/22 M3 PT-IP Subjective Start: 05/30/22 12:43 Freq: NEEDED Status: Active Protocol: Document 05/30/22 09:50 AB (Rec: 05/30/22 12:57 AB [email or web address]) Subjective Physical Therapy Visit Type Type Initial Evaluation Visit Start Time 09:50 Visit Stop Time 11:10 Total Visit Minutes 80 Number of PLASTIC MOULD MAKER Visits 0 Physical Therapy Visit Comments Patient Comments agreeable to do PT Therapy Pain Assessment Pain When Pain Assessed At Rest Pain Present Pain Present Pain Reported Location left knee Intensity 5 Scale Used Numeric (0 - 10) Pain Management Techniques Apply Cold,Distraction, Modification of Treatment,Re- positioning,Timing of Activity with Medications M4 PT-IP Mobility and Gait Start: 05/30/22 12:43 Freq: NEEDED Status: Active Protocol: Document 05/30/22 09:50 AB (Rec: 05/30/22 12:57 AB [email or web address]) PT-Bed Mobility Assessment Supine to Sit Supine to Sit Standby Assistance PT-Transfer Assessment Sit to and From Stand Sit to and from Stand Standby Assistance Equipment Transfer Assistive Device Gait Belt,Front Wheeled Walker Orthotic/Prosthetic Devices or Brace: No Transfers Transfer Destination Toilet Transfer Technique ambulated Transfer Ability Level of Assist Standby Assistance,1 Person Assistance,Use of Upper Extremities Comments Mobility Comments completed supine to sit SBA. requested to use the toilet. completed sit to stand SBA and ambulated to the toilet using FWW SBA. completed toileting SBA. pt completed sit to stand from the toilet SBA using grab bar and ambulated out towards the chair SBA using FWW. pt agreed to do stairs. completed sit to stand SBA and ambulated ~ 125 ft using fWW in the hallway. educated pt on up/down steps. completed up/down steps holding on to L ral with B hands and pt requiring CGA ascending but required min to mod A descending with LOB. educated pt on safety and use os rail + SPC for stairs. pt completed up/down steps using L rail +SPC and CGA ascending and min A descending. pt sat on w/c. educated on safety with stairs and pt stated that she will just stay on the first level of the house for now and does not have stairs to maneuver. assisted pt back to her room. c/o increase knee pain and requested to go back to bed. completed sit to stand from the w/c SBA and ambulated to the bed using FWW SBA. completed sit to supine SBA. positioned pt in bed. call light and table placed within reach. Gait Assessment Gait Gait Assistance Required: Standby Assistance,1 Person Assist Distance (Feet) 125 Able to Maintain Weight Bearing Status Yes During Gait Assistive Devices Assistive Device Gait Belt,Front Wheeled Walker Orthotic/Prosthetic Devices or Brace: No Gait Deviations General Gait Pattern Antalgic,Decreased Stride Length,Decreased Feet Clearance Factors Limiting Gait Function Factors Limiting Gait Function Decreased Activity Tolerance, Decreased Strength,Limited Range of Motion,Pain,Poor Balance,Poor Safety Awareness Stair Climbing Assessment Evaluation Level of Assist On Stairs Contact Guard Assistance, Minimal Assistance Devices Stair Climbing Assistive Devices Straight Cane,Left Railing Technique/Endurance Stair Climbing Direction Ascend and Descend Stair Climbing Technique Step to Step Number of Steps Climbed 3 Query Text: Stair Climbing Set # Repetitions (reps) 2 Comments Stair Climbing Comments pls refer to mobility section for details PT-Balance Assessment Sitting Balance and Reactions Static Sitting Balance Ability Normal Dynamic Sitting Balance Ability Good Standing Balance and Reactions Static Standing Balance Ability Fair Dynamic Standing Balance Ability Fair Device Used FWW M5 PT-IP Objective Assessments Start: 05/30/22 12:43 Freq: NEEDED Status: Active Protocol: Document 05/30/22 09:50 AB (Rec: 05/30/22 12:57 AB [email or web address]) Orientation Orientation/Cognition Level of Alertness Alert Orientation Name,Place,Situation Language Function Ability No Deficits Noted Safety Awareness Decreased Safety Awareness Memory Description No Deficits Noted Gross Range of Motion Lower Extremity ROM Impairments R knee flexion: ~ 90 deg Strength Lower Extremity Strength Hip 4-/5 Knee 4-/5 Coordination Assessment Gross Coordination Gross Coordination WNL Muscle Tone Muscle Tone WNL Yes M6 PT-IP Treatment Start: 05/30/22 12:43 Freq: NEEDED Status: Active Protocol: Document 05/30/22 09:50 AB (Rec: 05/30/22 12:57 AB [email or web address]) Physical Therapy Treatment Education Education Provided Precautions,Weight Bearing Status,Post-Op Packet,Safety M7 PT-IP Assessment and Plan Start: 05/30/22 12:43 Freq: NEEDED Status: Active Protocol: Document 05/30/22 09:50 AB (Rec: 05/30/22 12:57 AB [email or web address]) PT Summary Assessment and Plan Potential Rehabilitation Potential Good Status of Condition at Evaluation Stable Summary Impairments Pain,ROM,Strength,Balance, Coordination,Sensation,Tone, Cognition,Bed Mobility, Transfers,Gait,Activity Tolerance Assessment Summary pt requiring SBA with mobility but requiring min A for descending stairs. pt agreed to stay on main level of the house and does not have any steps to maneuver. pt plans to go home and her daughter will assist her at home. pt has outpt PT set up. pt may go home when medically stable. Goals Bed Mobility Goal Independent Transfer Goal Independent,Front Wheeled Walker,Four Wheeled Walker Gait Goal Independent,Front Wheel Walker ,Four Wheel Walker Gait Distance 200 Other Goals up/down 13 steps R rail descending SBA Days to Meet Goals 5 Frequency of Treatment Frequency Of Treatment Twice a Day Treatment Plan Physical Therapy Treatment Plan Bed Mobility Training,Transfer Training,Gait Training, Therapeutic Exercise,Balance Retraining,Post Op Education, Discharge Planning,Hot or Cold Pack,Neuromuscular Re-ed, Coordination Retraining,Manual Therapy Weight Bearing Status Weight Bearing Status Weight Bear as Tolerated Allowed Weight Bearing Amount (enter % RLE WBAT or #) (%) Recommendations To Nursing Amount of Assist Needed 1 Person Assist Discharge Recommendations PT Discharge Recommendations Home with Assistance, Outpatient PT Transportation Needs at Discharge Private Vehicle
[2022-05-30 11:44] VITALS: BP 100/57; PULSE 72; RESP 20; TEMP 36.8; O2SAT 96
--- NOTE | 2022-05-30 12:07 | PM.DS.1 ---
History of Present Illness History of Present Illness Date Patient Seen: 05/30/22 Time Patient Seen: 12:07 Chief complaint: Knee pain Narrative: See progress note Discharge Providers Provider Discharge Date: 05/30/22 Primary care physician: SAMUEL Koenig Consults: 05/29/22 17:08 Consult to Discharge Planning Routine Comment: Consult to Physical Therapy Evaluate & Treat Comment: Physician Instructions: postop TKA protocol Discharge provider: Gustavo Waldron PA-C Summary Hospital Course Discharge Diagnosis: Severe right knee osteoarthritis Hospital Course: Right knee replacement, total CPT code 30218 Same procedure as scheduled: Yes Indications: Patient is a 66-year-old female with end-stage right knee arthritis.? She is failed an exhaustive course of conservative treatment with therapy, braces, injections.? She is been indicated for right total knee replacement.? She is been medically optimized.? The risks and benefits of the procedure have been discussed with the patient they have been given the opportunity to ask questions.? The risks include but are not limited to infection, malunion nonunion, persistent pain, damage to nerves and blood vessels, posttraumatic arthritis, DVT, PE, cardiopulmonary complications and .? The patient expressed a thorough understanding of the risks and benefits of surgery and has elected to proceed.? Consent was signed. During the operation, the services of a physician surgical endoscopist were medically indicated and necessary to provide the exposure of the operative site for the surgical procedure and to maintain the limb in a proper position to carry out the operation safely and efficiently.? Without a qualified trust manager assistant being present this would extended the operative procedure and made the procedure technically more difficult to perform. Surgeon: Guillermina Herrera [employer] Structure Assembler: Syl Pinto Anesthesia Type: General, Spinal and Local Operative Notes Findings: End-stage right knee arthritis with cartilage loss medial and lateral compartments as well as patellofemoral compartment.? Full-thickness. Closure Type: primary Specimen(s): none sent Prosthetic devices, grafts, tissues, transplants, or devices: Sharma and nephew journey 2? B[employer] femur bi cruciate stabilized Oxinium size 6 right Tibia size 5 Poly 11 mm Patella 35 round 7.5mm Estimated Blood Loss (mL): 50 Blood products transfused: none Tourniquet time (min): 94 Patient admitted for the above-mentioned procedure. Patient taken operating room on 05/29/2022 for right total knee arthroplasty. Patient back in her room recovering well as in stable condition. Patient required 2 L oxygen per nasal cannula overnight and this morning. Patient worked with physical therapy. Her O2 sat has been great. She will be discharged home today in stable condition. Exam Vital Signs (past 8 hours): - 05/30/22 08:00 05/30/22 11:44 Temperature 97.1 F L 98.3 F Pulse Rate 73 72 Respiratory Rate 20 20 Blood Pressure 125/75 100/57 L Pulse Oximetry 96 96 Oxygen Flow Rate 0 0 Oxygen Delivery Method Nasal Cannula Oxygen Flow Rate 0 Objective Labs Result Diagrams: 05/30/22 04:15 Labs: Laboratory Results - last 24 hr 05/30/22 04:15 Hgb 10.2 L Hct 31.5 L PFSH Medical History Anxiety Bipolar disorder Chronic cough Depression Diabetes Fibromyalgia GERD (gastroesophageal reflux disease) HLD (hyperlipidemia) HTN (hypertension) Hypothyroidism ALDO on CPAP Pacemaker (04/28/13) PTSD (post-traumatic stress disorder) Sciatica Surgical History History of bilateral tubal ligation History of gynecologic surgery History of nasal surgery History of total left knee replacement (04/03/22) Hx of arthroscopy of right knee Hx of bilateral breast reduction surgery Hx of bilateral cataract extraction Hx of cholecystectomy Hx of tonsillectomy S/P epidural steroid injection S/P excision of lipoma Social History household members: children Smoking Status: Former smoker alcohol intake: former Discharge Assessment & Plan Assessment and Plan Assessment: Patient progressing as expected status post right total knee arthroplasty. Plan of Treatment: Weightbearing as tolerated Multimodal pain management Aspirin 81 mg b.i.d. for 6 weeks Discharge home today in stable condition. Discharge Plan Discharge Plan Patient Disposition: Home Discharge orders & Medications Discharge Orders: Discharge (Order); Ordered 05/30/22 Ordered By: Gustavo Waldron Prescriptions: New oxycodone 5 mg tablet 5 mg PO Q4H PRN (Reason: pain) Qty: 40 0RF Rx Instructions: postop exempt ondansetron 4 mg tablet,disintegrating 4 mg PO Q8H PRN (Reason: nausea and vomiting) Qty: 7 1RF ketorolac 10 mg tablet 10 mg PO QID 5 Days Qty: 20 0RF aspirin 81 mg tablet,delayed release (DR/EC) 81 mg PO BID Qty: 60 0RF Continued lamotrigine 200 mg Tablet 375 mg PO BEDTIME losartan 50 mg Tablet 100 mg PO BEDTIME metformin 500 mg Tablet 500 mg PO BID trazodone 50 mg Tablet 50 - 150 mg PO BEDTIME omeprazole 20 mg Capsule,Delayed Release(Dr/Ec) 20 mg PO BID levothyroxine 200 mcg Tablet 200 mcg PO DAILY pravastatin 20 mg Tablet 20 mg PO BEDTIME lorazepam 1 mg Tablet 1 mg PO BID fluoxetine 60 mg Tablet 60 mg PO BEDTIME ibuprofen 400 mg tablet 400 mg PO Q6H MDD Max 2400 mg per day PRN (Reason: Pain/inflammation) Qty: 90 0RF naloxone [Narcan] 4 mg/actuation spray,non-aerosol 4 mg intranasal Q3M PRN (Reason: opioid overdose) Qty: 2 0RF Rx Instructions: spray 1 dose into ONE nostril; alternate nostrils w each dose until help arrives Discontinued aspirin 81 mg tablet,delayed release (DR/EC) 81 mg PO DAILY Follow up/Referrals: Guillermina Herrera MD [Physician] - (as scheduled) Juliann Douglas ARNP [Primary Care Provider] - Diet/Activity/Treatments Diet: Carb-consistent/Diabetic Other treatments: Total knee replacement postoperative instructions. Medications: -Aspirin 81mg twice daily x6 weeks to prevent blood clots. -OTC Tylenol 500 mg 1 tablet every 4 hours as needed for pain/fever. Max 6 tablets per day. (take scheduled every 4-6 hours for the first few days to week after schedule to help stay on top of your pain) -Ibuprofen 400 mg 1 tablet every 4 hours as needed for pain/inflammation. Max 2,400 mg per day. (take scheduled for the first few days-week after surgery to stay on top of your pain) -Oxycodone 5 mg take 1-2 tablets (5-10mg) every 4 hours as needed for moderate-severe pain (narcotic pain medication). (maximum dose for very severe pain would be 3 pills (15mg) every 3 hours) -Vistaril (hydroxyine) 25mg 1 tab every 4 hours as needed for spasms/pain/nausea, or -Ondansetron 4mg - 1 tab every 8 hours as needed for nausea -As needed medications: -Ducolax and /or MiraLax as needed for constipation from narcotic pain medications. -Pepcid AC as needed for stomach upset (usually from aspirin or ibuprofen). Dressing/Wound care: -Remove the Branden wrap 48 hours after surgery. -Keep Aquacell dressing in place until postoperative follow-up office visit. -Okay to shower. Keep wound out of direct water stream. No soaking or submerging until all the scabs fall off (approximately 4-6 weeks). -No lotions, ointments, or scar creams directly to the incision until the wound is healed (4-6 weeks), -Please call the office if dressing becomes wet, soiled, or saturated. Activities: -Weight-bearing as tolerated. Use front wheeled walker, and progress to cane when safe. -Continue with home exercises as directed by your physical therapist. (work on getting your leg. knee fully straight and bending knee as well- motion after knee replacement is very important) -should have outpatient Physical Therapy visits set up to start within 1 week after surgery -Elevate ?toes above the nose if you have significant swelling in your lower leg. (A wedge pillow is easiest.) -Ice your incision as needed for pain/inflammation/swelling. Protect your skin with a folded pillowcase. -Incentive Spirometer (breathing device from hospital): 5-10xs every hour while awake for the first 1-2 weeks. Follow-up: -Follow-up with your surgeon or PA in the office in 10-14 days after surgery. -Follow-up with your surgeon 6 weeks postoperatively. Contact the office if you have any of the following: ? Painful swelling or numbness ? Unrelenting pain ? Fever (over 101?- it is normal to have a low grade fever for the first day or two following surgery) or chills ? Redness around the incisions ? Color changes ? Continuous bleeding or drainage from the incision (a small amount is expected) ? Excessive nausea or vomiting ? Difficulty breathing If you have an emergency that requires immediate attention such as shortness of breath or chest pain, call 911 or proceed to the nearest emergency room. [facility]: [phone] Pain Medications: It is the policy of [facility] that narcotic medications will only be refilled during office hours. Additionally, due to the alarming rate of narcotic pain medication abuse/dependence, it has become necessary for physician practices to closely manage patient use of prescription narcotic pain relievers, such as Vicodin ([place]), Percocet, and Oxycodone products. Narcotic pain management in the postoperative period may not exceed 6 weeks. If narcotic pain management is required beyond 90 days, then a referral to a Chronic Pain Specialist will be made. If a request for a medication prescription of refill has been made, the physician must review your chart prior to authorizing the request. Please be patient with office staff. If you call during patient hours, your call may not be returned until the end of the day. Skin/Wound/Dressing Care Report to your healthcare provider any signs of infection, such as:: chills, fever, night sweats, increased pain, unusual drainage and unusual redness Visit Report/Discharge Packet Instructions: DI for Knee Replacement Discharge Data Primary Care Provider: Juliann Douglas Attending Provider: Guillermina Herrera VTE Deep Vein Thrombosis/Pulmonary Embolism Present on Admission: No
[2022-05-30] MEDS: INSULIN LISPRO 100 UNIT/ML 3ML VIAL SUBCUT (12:12)
== END 2022-05-30 13:18 | disposition home or self-care (01) ==
LOC: OR 06-01 11:01 → AC 06-01 11:01
PROVIDERS: Admitting Provider Orthopaedic Surgery Foot and Ankle Surgery; PCP Registered Nurse; Referring Provider Orthopaedic Surgery Foot and Ankle Surgery; Visit Provider Orthopaedic Surgery Foot and Ankle Surgery
PROC: 0SRC0JZ Replacement of Right Knee Joint with Synthetic Substitute, Open Approach (ICD-10-PCS; CPT 27447; principal; 2022-05-29 10:45)
DX: M17.11 Unilateral primary osteoarthritis, right knee (principal)
CPT/HCPCS: 27447; 36415; 73560; 82962; 85014; 85018; 97116; 97161; 97530; C1776; G0378; C1713; C9290; J0690; J1100; J1170; J1885; J2250; J2405; J2704; J3010

== ENCOUNTER 2022-05-31 12:56 | Emergency (ER) | payer OTHER, SELFPAY ==
[2022-05-29 16:53] VITALS: BMI 34.7
[2022-05-31] VITALS (8 sets, daily range): BP systolic 132–171; BP diastolic 73–81; PULSE 70–75; RESP 16; TEMP 37.1; O2SAT 92–95; BMI 33.4
--- NOTE | 2022-05-31 13:14 | DI.RAD.S_ITS ---
PROCEDURE: XR KNEE RT 3V INDICATIONS: s/p knee replacement, c/o pain swelling, injury TECHNIQUE: 43 views of the knee were acquired. COMPARISON: [facility], , XR KNEE RT 1TO2V, 05/29/2022, 15:31. FINDINGS: Bones: No fractures or dislocations. No suspicious bony lesions. Unremarkable postoperative hardware is seen. Soft tissues: There is a moderate joint effusion. Soft tissue postoperative changes are seen, with decreasing tissue gas. No suspicious soft tissue calcifications. IMPRESSION: Postoperative hardware within normal limits. Moderate joint effusion. Improving postoperative gas. Dictated by: David Mcbride M.D. on 05/31/2022 at 12:57 Approved by: David Mcbride M.D. on 05/31/2022 at 12:58
--- NOTE | 2022-05-31 13:21 | ED.LOWEXIN ---
HPI - Extremity Injury (Lower) <Glo Garza, ANIMAL RESCUER - Last Filed: 05/31/22 15:38> General Chief Complaint: Extremity Injury, Lower Stated Complaint: pain in knee Time Seen by Provider: 05/31/22 13:08 History of Present Illness HPI Narrative: This is a 66-year-old female who presents to the emergency department via EMS status post right total knee arthroplasty with Dr. Yoo on 05/29/2022 complaining of the inability to care for herself due to the pain, states that she was unable to get out of bed today. She complains of ongoing brain fog since her procedure, she says that she feels groggy and lightheaded. She denies fever, chills, cough, congestion. She states that she has sweat the bed and is concerned about ongoing worsening pain in her right knee. States that her grandson has the flu. When looking over her medications, she was prescribed oxycodone, baby aspirin, Toradol and patient states that she took some lorazepam for her pain this morning. She received 100 mgs of fentanyl in route by EMS and is having difficulty with her word-finding at this time. She is alert, awake, interactive, complaining of pain, states that she needs to void, denies sensation changes other than pain. Related Data Home Medications Medication Instructions Recorded Confirmed fluoxetine 60 mg tablet 60 mg PO BEDTIME 03/10/22 05/29/22 levothyroxine 200 mcg tablet 200 mcg PO DAILY 03/10/22 05/29/22 lorazepam 1 mg tablet 1 mg PO BID 03/10/22 05/29/22 losartan 50 mg tablet 100 mg PO BEDTIME 03/10/22 05/29/22 metformin 500 mg tablet 500 mg PO BID 03/10/22 05/29/22 omeprazole 20 mg capsule,delayed 20 mg PO BID 03/10/22 05/29/22 release pravastatin 20 mg tablet 20 mg PO BEDTIME 03/10/22 05/29/22 trazodone 50 mg tablet 50 - 150 mg PO BEDTIME 03/10/22 05/29/22 lamotrigine 200 mg tablet 375 mg PO BEDTIME 05/27/22 05/29/22 Previous Rx's Medication Instructions Recorded ibuprofen 400 mg tablet 400 mg PO Q6H PRN 04/04/22 Pain/inflammation #90 tabs naloxone 4 mg/actuation nasal 4 mg intranasal Q3M PRN opioid 04/05/22 spray (Narcan) overdose #2 ea aspirin 81 mg tablet,delayed 81 mg PO BID #60 tabs 05/29/22 release ketorolac 10 mg tablet 10 mg PO QID 5 days #20 tabs 05/29/22 ondansetron 4 mg disintegrating 4 mg PO Q8H PRN nausea and 05/29/22 tablet vomiting #7 tabs oxycodone 5 mg tablet 5 mg PO Q4H PRN pain #40 tabs 05/29/22 hydromorphone 2 mg tablet 2 mg PO Q6H PRN pain #7 tabs 05/31/22 (Dilaudid) methocarbamol 500 mg tablet 500 mg PO Q8H PRN muscle spasm. 05/31/22 #20 tabs polyethylene glycol 3350 17 17 g PO DAILY constipation #238 05/31/22 gram/dose oral powder (Miralax) grams Allergies Allergy/AdvReac Type Severity Reaction Status Date / Time No Known Drug Allergies Allergy Verified 05/29/22 09:16 Review of Systems <SAMUEL Vasquez - Last Filed: 05/31/22 15:38> Review of Systems ROS Unobtainable: All systems reviewed & are unremarkable except as noted in HPI and below Patient History <SAMUEL Vasquez - Last Filed: 05/31/22 15:38> Medical History Anxiety Bipolar disorder Chronic cough Depression Diabetes Fibromyalgia GERD (gastroesophageal reflux disease) HLD (hyperlipidemia) HTN (hypertension) Hypothyroidism ALDO on CPAP Pacemaker (04/28/13) PTSD (post-traumatic stress disorder) Sciatica Surgical History History of bilateral tubal ligation History of gynecologic surgery History of nasal surgery History of total left knee replacement (04/03/22) Hx of arthroscopy of right knee Hx of bilateral breast reduction surgery Hx of bilateral cataract extraction Hx of cholecystectomy Hx of tonsillectomy S/P epidural steroid injection S/P excision of lipoma Social History household members: children Smoking Status: Former smoker alcohol intake: former Smoking Status: Former smoker alcohol intake frequency: 0-2 drinks per day Substance Use Type: marijuana Exam <SAMUEL Vasquez - Last Filed: 05/31/22 15:38> Narrative Exam Narrative: Reviewed vitals signs and nursing notes. General: cooperative, is wearing pajamas, dry mucous membranes, complaining of right knee pain and rubbing the top of it HEENT: symmetrical facial expressions, EOMI, pinpoint pupils, Cardiovascular: regular rate and rhythm, no peripheral edema, warm extremities Respiratory: normal effort, able to speak in complete sentences, without wheezing, stridor, or abnormal breath sounds. No retractions or tachypnea. GI: abdomen soft, nontender to palpation, nondistended, without masses, rebound tenderness or exquisite tenderness with exam., MSK: moves all extremities, neurovascularly intact, no weakness, normal tone, postop dressing remains intact, mild erythema surrounding the anterior knee without fluctuance, exquisite tenderness, rash, bleeding, suprapatellar effusion or other obvious abnormality without pedal edema Skin: brisk capillary refill, without pallor or erythema Neuro: normal speech and cognition, A&O x3, clear speech Psych: mental status is grossly normal, congruent mood, normal affect, pleasant and cooperative Initial Vital Signs Initial Vital Signs: Vital Signs Pulse Rate 73 05/31/22 13:05 Blood Pressure 171/81 H 05/31/22 13:05 Pulse Oximetry 94 05/31/22 13:05 <John Paul Stout DO - Last Filed: 06/01/22 07:13> Initial Vital Signs Initial Vital Signs: Vital Signs Pulse Rate 73 05/31/22 13:05 Blood Pressure 171/81 H 05/31/22 13:05 Pulse Oximetry 94 05/31/22 13:05 Course <SAMUEL Vasquez - Last Filed: 05/31/22 15:38> Orders Ordered: Discontinued Medications Ketorolac Tromethamine (Ketorolac 30 Mg/Ml Vial) 15 mg IV NOW ONE Stop: 05/31/22 13:15 Last Admin: 05/31/22 13:57 Dose: 15 mg Documented By: JOSELO Lidocaine (Lidocaine Patch 1 Each Adh..Patch) 1 each TOP NOW ONE Stop: 05/31/22 13:15 Last Admin: 05/31/22 13:58 Dose: 1 each Documented By: RL Lidocaine (Remove Lidocaine Patch) 1 each TOP BEDTIME MARGIE Oxycodone/Acetaminophen (Oxycodone/Acetaminophen 5/325 Tablet) 1 tab PO NOW ONE Stop: 05/31/22 13:15 Last Admin: 05/31/22 13:58 Dose: 1 tab Documented By: RL Vital Signs Vital signs: Vital Signs - 8 hr 05/31/22 13:07 05/31/22 13:05 05/31/22 13:05 Temperature 98.8 F Pulse Rate 75 73 Respiratory Rate 16 Blood Pressure 171/81 H 171/81 H Pulse Oximetry 93 94 Oxygen Delivery Method Room Air 05/31/22 13:06 05/31/22 13:06 05/31/22 13:41 Temperature Pulse Rate 72 72 Respiratory Rate Blood Pressure 165/80 H Pulse Oximetry 95 95 Oxygen Delivery Method 05/31/22 14:00 05/31/22 14:30 05/31/22 14:30 Temperature Pulse Rate 70 70 Respiratory Rate Blood Pressure 145/73 H Pulse Oximetry 92 95 Oxygen Delivery Method 05/31/22 15:00 05/31/22 15:01 05/31/22 15:01 Temperature Pulse Rate 70 70 Respiratory Rate Blood Pressure 132/74 Pulse Oximetry 95 Oxygen Delivery Method <John Paul Stout DO - Last Filed: 06/01/22 07:13> Orders Ordered: Discontinued Medications Ketorolac Tromethamine (Ketorolac 30 Mg/Ml Vial) 15 mg IV NOW ONE Stop: 05/31/22 13:15 Last Admin: 05/31/22 13:57 Dose: 15 mg Documented By: JOSELO Lidocaine (Lidocaine Patch 1 Each Adh..Patch) 1 each TOP NOW ONE Stop: 05/31/22 13:15 Last Admin: 05/31/22 13:58 Dose: 1 each Documented By: RL Lidocaine (Remove Lidocaine Patch) 1 each TOP BEDTIME MARGIE Oxycodone/Acetaminophen (Oxycodone/Acetaminophen 5/325 Tablet) 1 tab PO NOW ONE Stop: 05/31/22 13:15 Last Admin: 05/31/22 13:58 Dose: 1 tab Documented By: RL Consultations Consultation #1: discussed with Dr. Sharma (Ortho). We have discussed patient's history, physical exam, recent intervention, she has seen incision and reviewed imaging. Recommends increasing pain regimen. No indication for hospitalization. Vital Signs Vital signs: Vital Signs - 8 hr 05/31/22 13:07 05/31/22 13:05 05/31/22 13:05 Temperature 98.8 F Pulse Rate 75 73 Respiratory Rate 16 Blood Pressure 171/81 H 171/81 H Pulse Oximetry 93 94 Oxygen Delivery Method Room Air 05/31/22 13:06 05/31/22 13:06 05/31/22 13:41 Temperature Pulse Rate 72 72 Respiratory Rate Blood Pressure 165/80 H Pulse Oximetry 95 95 Oxygen Delivery Method 05/31/22 14:00 05/31/22 14:30 05/31/22 14:30 Temperature Pulse Rate 70 70 Respiratory Rate Blood Pressure 145/73 H Pulse Oximetry 92 95 Oxygen Delivery Method 05/31/22 15:00 05/31/22 15:01 05/31/22 15:01 Temperature Pulse Rate 70 70 Respiratory Rate Blood Pressure 132/74 Pulse Oximetry 95 Oxygen Delivery Method MDM - Extremity Injury (Lower) <SAMUEL Vasquez - Last Filed: 05/31/22 15:38> Lab Data Result diagrams: 05/31/22 13:53 05/31/22 13:53 Labs: Lab Results 05/31/22 05/31/22 05/31/22 Range/Units 13:43 13:43 13:53 WBC 8.4 (4.5-11.0) X10^3/uL RBC 3.61 L (4.0-5.2) X10^6/uL Hgb 9.4 L (12.0-16.0) g/dL Hct 28.2 L (36-46) % MCV 78.3 L (80-100) fL MCH 26.1 (26-34) PG MCHC 33.4 (30-36) % RDW 15.6 H (11.6-14.8) % Plt Count 239 (150-400) X10^3/uL Neut % (Auto) 58.8 (50-75) % Lymph % (Auto) 26.2 (25-40) % Fleming % (Auto) 13.2 (3-14) % Eos % (Auto) 1.2 L (2-4) % Baso % (Auto) 0.6 (0-2) % Neut # (Auto) 4900 (1956-7547) /uL Lymph # (Auto) 2200 (5431-4019) /uL Fleming # (Auto) 1100 H (0-900) /uL Eos # (Auto) 100 (0-450) /uL Baso # (Auto) 100 (0-100) /uL Sodium (137-145) mmol/L Potassium (3.4-5.1) mmol/L Chloride (98-107) mmol/L Carbon Dioxide (22-32) mmol/L BUN (7-17) mg/dL Creatinine (0.52-1.04) mg/dL Estimated GFR (>60) mL/min BUN/Creatinine Ratio (6-22) Glucose (80-110) mg/dL Calcium (8.4-10.2) mg/dL C-Reactive Protein (<1.0) mg/dL Procalcitonin (<0.5) ng/mL Urine Color Yellow Urine Appearance Clear Urine pH 5.5 (4.5-8.0) Ur Specific [place] <=1.005 (1.000-1.035) Urine Protein Negative (Negative) Urine Glucose (UA) Negative (Negative) g/dL Urine Ketones Negative (NEGATIVE) Urine Occult Blood Negative (Negative) Urine Nitrate Negative (Negative) Urine Bilirubin Negative (NEGATIVE) Urine Urobilinogen 0.2 (0.2) E.U./dL Ur Leukocyte Esterase Trace H (NEGATIVE) Urine RBC None seen (0-5/HPF) Urine WBC 0-1/hpf (0-5/HPF) Urine Bacteria None seen (None) Ur Culture Indicated? Cult not indicated SARS-CoV-2 (PCR) Negative (Negative) Influenza A (RT-PCR) Flu a negative (NEGATIVE) Influenza B (RT-PCR) Flu b negative (NEGATIVE) RSV (PCR) Negative (Negative) 05/31/22 Range/Units 13:53 WBC (4.5-11.0) X10^3/uL RBC (4.0-5.2) X10^6/uL Hgb (12.0-16.0) g/dL Hct (36-46) % MCV (80-100) fL MCH (26-34) PG MCHC (30-36) % RDW (11.6-14.8) % Plt Count (150-400) X10^3/uL Neut % (Auto) (50-75) % Lymph % (Auto) (25-40) % Fleming % (Auto) (3-14) % Eos % (Auto) (2-4) % Baso % (Auto) (0-2) % Neut # (Auto) (9502-5851) /uL Lymph # (Auto) (8783-3234) /uL Fleming # (Auto) (0-900) /uL Eos # (Auto) (0-450) /uL Baso # (Auto) (0-100) /uL Sodium 137 (137-145) mmol/L Potassium 4.0 (3.4-5.1) mmol/L Chloride 102 (98-107) mmol/L Carbon Dioxide 30 (22-32) mmol/L BUN 19 H (7-17) mg/dL Creatinine 0.75 (0.52-1.04) mg/dL Estimated GFR > 60 (>60) mL/min BUN/Creatinine Ratio 25.3 H (6-22) Glucose 136 H (80-110) mg/dL Calcium 8.8 (8.4-10.2) mg/dL C-Reactive Protein 17.7 H (<1.0) mg/dL Procalcitonin 0.08 (<0.5) ng/mL Urine Color Urine Appearance Urine pH (4.5-8.0) Ur Specific [place] (1.000-1.035) Urine Protein (Negative) Urine Glucose (UA) (Negative) g/dL Urine Ketones (NEGATIVE) Urine Occult Blood (Negative) Urine Nitrate (Negative) Urine Bilirubin (NEGATIVE) Urine Urobilinogen (0.2) E.U./dL Ur Leukocyte Esterase (NEGATIVE) Urine RBC (0-5/HPF) Urine WBC (0-5/HPF) Urine Bacteria (None) Ur Culture Indicated? SARS-CoV-2 (PCR) (Negative) Influenza A (RT-PCR) (NEGATIVE) Influenza B (RT-PCR) (NEGATIVE) RSV (PCR) (Negative) Imaging Data Extremity x-ray #1: Radiologist's Impression: PROCEDURE:? XR KNEE RT 3V ? INDICATIONS:? s/p knee replacement, c/o pain swelling, injury ? TECHNIQUE:? 43 views of the knee were acquired.? ? COMPARISON:? [facility], CR, XR KNEE RT 1TO2V, 05/29/2022, 15:31. ? FINDINGS:? ? Bones:? No fractures or dislocations.? No suspicious bony lesions.? ? Unremarkable postoperative hardware is seen. ? Soft tissues:? There is a moderate joint effusion.? Soft tissue postoperative changes are seen, with decreasing tissue gas. ? No suspicious soft tissue calcifications.? ? ? IMPRESSION:? Postoperative hardware within normal limits. ? Moderate joint effusion. ? Improving postoperative gas. ? ? Dictated by: David Mcbride M.D. on 05/31/2022 at 12:57 ? ? Approved by: David Mcbride M.D. on 05/31/2022 at 12:58 ? MDM Narrative Medical decision making narrative: CC: Knee pain, unable to care for self This is a 66-year-old female who presents to the emergency department via EMS status post right total knee arthroplasty with Dr. Yoo on 05/29/2022 complaining of the inability to care for herself due to the pain, states that she was unable to get out of bed today. Differential diagnoses include, but are not limited to: Postop infection of the joint, cellulitis, hardware failure/trauma, joint effusion, failure to thrive, acute cystitis I have reviewed the patient's vital signs and nursing notes as well as prior records if available. Lab test results independently reviewed, pertinent findings: My imaging interpretation: Right knee x-ray shows joint effusion Discussion of Management with other Health Professionals: Photo taken and sent to Dr. Sharma who is on-call for Orthopedics Re-evaluations/Ongoing course of care: 1315 saw the patient, put in orders for imaging, pain control, and lab work, ask the nurse to use walker and 1400 patient was able to stand and use a commode using a walker with the bedside nurse, patient had significant reluctance, did not want to use the walker but was successful with using it. Patient's symptoms improved over duration of stay with above-stated therapies. 1430 reassess patient's pain, she states that she is feeling much better, she was able to get up and stand with assistance but states that she can not, she states that she can not do anything due to the pain. She does endorse that she feels better at this time and appears comfortable. 1530 patient was given a new walker, she was able to stand, use the commode, and got up on her own and back into bed without difficulty. Her pain control she states is much better than when she arrived. Discussion with Dr. Sharma regarding disposition, she recommends Dilaudid could be helpful as well as a muscle relaxer for pain control. When I talked to the patient, she told me that she took lorazepam for her pain this morning. Does not education on taking anti-inflammatories with oxycodone as she was prescribed this for her pain. She was given a short prescription Dilaudid to use for exacerbating symptoms as well as a prescription of MiraLax to prevent constipation. She was given tabs of methocarbamol and told to use with caution with pain medication due to sedation. Patient is upset with being discharged, states that she fully expected to be admitted today, that her grandson and granddaughter that she lives with both have influenza and are unable to take care of her. Patient's respiratory panel is negative for viral illness, overall her lab work is grossly unremarkable, CRP is elevated but this is to be expected postoperatively. Encourage patient to follow-up with orthopedics tomorrow, patient wishes to obtain a cab ride home. Encouraged her to ice, rest, and move her knee fruit currently without exertional activity to prevent stiffness and worsening pain. Patient is appropriate and amenable to discharge home. Vital signs are stable on repeat examination is unremarkable. Patient has been informed of results. Patient has been given strict return to ER precautions for any new or worsening symptoms. Patient understands to follow up closely with outpatient providers as instructed. Patient understands plan and agrees to discharge home. All questions and concerns answered at this time. Social considerations that may affect disposition: Poor support at home, left total knee replacement 8 weeks ago Shared decision making: Consulted with Dr. Stout and Dr. Sharma regarding plan for care Disposition: see below, along with detailed discharge instructions that have been reviewed with the patient as well as indications for ED re-evaluation and additional outpatient follow-up. Questions are addressed and there is agreement with the plan and for follow-up. Patient is appropriate for outpatient management. MIPS: This encounter doesn't have any diagnosis associated with MIPS criteria. IGlo ARNP, personally performed the services described in the documentation, and it accurately records my words and actions. I collaborated with the ED attending physician for CARLOS level 2, 3, and some level 4s as appropriate. <John Paul Stout, DO - Last Filed: 06/01/22 07:13> Lab Data Labs: Lab Results 05/31/22 05/31/22 05/31/22 Range/Units 13:43 13:43 13:53 WBC 8.4 (4.5-11.0) X10^3/uL RBC 3.61 L (4.0-5.2) X10^6/uL Hgb 9.4 L (12.0-16.0) g/dL Hct 28.2 L (36-46) % MCV 78.3 L (80-100) fL MCH 26.1 (26-34) PG MCHC 33.4 (30-36) % RDW 15.6 H (11.6-14.8) % Plt Count 239 (150-400) X10^3/uL Neut % (Auto) 58.8 (50-75) % Lymph % (Auto) 26.2 (25-40) % Fleming % (Auto) 13.2 (3-14) % Eos % (Auto) 1.2 L (2-4) % Baso % (Auto) 0.6 (0-2) % Neut # (Auto) 4900 (3659-6473) /uL Lymph # (Auto) 2200 (0005-4767) /uL Fleming # (Auto) 1100 H (0-900) /uL Eos # (Auto) 100 (0-450) /uL Baso # (Auto) 100 (0-100) /uL Sodium (137-145) mmol/L Potassium (3.4-5.1) mmol/L Chloride (98-107) mmol/L Carbon Dioxide (22-32) mmol/L BUN (7-17) mg/dL Creatinine (0.52-1.04) mg/dL Estimated GFR (>60) mL/min BUN/Creatinine Ratio (6-22) Glucose (80-110) mg/dL Calcium (8.4-10.2) mg/dL C-Reactive Protein (<1.0) mg/dL Procalcitonin (<0.5) ng/mL Urine Color Yellow Urine Appearance Clear Urine pH 5.5 (4.5-8.0) Ur Specific [place] <=1.005 (1.000-1.035) Urine Protein Negative (Negative) Urine Glucose (UA) Negative (Negative) g/dL Urine Ketones Negative (NEGATIVE) Urine Occult Blood Negative (Negative) Urine Nitrate Negative (Negative) Urine Bilirubin Negative (NEGATIVE) Urine Urobilinogen 0.2 (0.2) E.U./dL Ur Leukocyte Esterase Trace H (NEGATIVE) Urine RBC None seen (0-5/HPF) Urine WBC 0-1/hpf (0-5/HPF) Urine Bacteria None seen (None) Ur Culture Indicated? Cult not indicated SARS-CoV-2 (PCR) Negative (Negative) Influenza A (RT-PCR) Flu a negative (NEGATIVE) Influenza B (RT-PCR) Flu b negative (NEGATIVE) RSV (PCR) Negative (Negative) 05/31/22 Range/Units 13:53 WBC (4.5-11.0) X10^3/uL RBC (4.0-5.2) X10^6/uL Hgb (12.0-16.0) g/dL Hct (36-46) % MCV (80-100) fL MCH (26-34) PG MCHC (30-36) % RDW (11.6-14.8) % Plt Count (150-400) X10^3/uL Neut % (Auto) (50-75) % Lymph % (Auto) (25-40) % Fleming % (Auto) (3-14) % Eos % (Auto) (2-4) % Baso % (Auto) (0-2) % Neut # (Auto) (3256-7433) /uL Lymph # (Auto) (6718-9264) /uL Fleming # (Auto) (0-900) /uL Eos # (Auto) (0-450) /uL Baso # (Auto) (0-100) /uL Sodium 137 (137-145) mmol/L Potassium 4.0 (3.4-5.1) mmol/L Chloride 102 (98-107) mmol/L Carbon Dioxide 30 (22-32) mmol/L BUN 19 H (7-17) mg/dL Creatinine 0.75 (0.52-1.04) mg/dL Estimated GFR > 60 (>60) mL/min BUN/Creatinine Ratio 25.3 H (6-22) Glucose 136 H (80-110) mg/dL Calcium 8.8 (8.4-10.2) mg/dL C-Reactive Protein 17.7 H (<1.0) mg/dL Procalcitonin 0.08 (<0.5) ng/mL Urine Color Urine Appearance Urine pH (4.5-8.0) Ur Specific [place] (1.000-1.035) Urine Protein (Negative) Urine Glucose (UA) (Negative) g/dL Urine Ketones (NEGATIVE) Urine Occult Blood (Negative) Urine Nitrate (Negative) Urine Bilirubin (NEGATIVE) Urine Urobilinogen (0.2) E.U./dL Ur Leukocyte Esterase (NEGATIVE) Urine RBC (0-5/HPF) Urine WBC (0-5/HPF) Urine Bacteria (None) Ur Culture Indicated? SARS-CoV-2 (PCR) (Negative) Influenza A (RT-PCR) (NEGATIVE) Influenza B (RT-PCR) (NEGATIVE) RSV (PCR) (Negative) MDM Narrative Medical decision making narrative: CC: Knee pain, unable to care for self This is a 66-year-old female who presents to the emergency department via EMS status post right total knee arthroplasty with Dr. Yoo on 05/29/2022 complaining of the inability to care for herself due to the pain, states that she was unable to get out of bed today. Differential diagnoses include, but are not limited to: Postop infection of the joint, cellulitis, hardware failure/trauma, joint effusion, failure to thrive, acute cystitis I have reviewed the patient's vital signs and nursing notes as well as prior records if available. Lab test results independently reviewed, pertinent findings: My imaging interpretation: Right knee x-ray shows joint effusion Discussion of Management with other Health Professionals: Photo taken and sent to Dr. Sharma who is on-call for Orthopedics Re-evaluations/Ongoing course of care: 1315 saw the patient, put in orders for imaging, pain control, and lab work, ask the nurse to use walker and 1400 patient was able to stand and use a commode using a walker with the bedside nurse, patient had significant reluctance, did not want to use the walker but was successful with using it. Patient's symptoms improved over duration of stay with above-stated therapies. 1430 reassess patient's pain, she states that she is feeling much better, she was able to get up and stand with assistance but states that she can not, she states that she can not do anything due to the pain. She does endorse that she feels better at this time and appears comfortable. 1530 patient was given a new walker, she was able to stand, use the commode, and got up on her own and back into bed without difficulty. Her pain control she states is much better than when she arrived. Discussion with Dr. Sharma regarding disposition, she recommends Dilaudid could be helpful as well as a muscle relaxer for pain control. When I talked to the patient, she told me that she took lorazepam for her pain this morning. Does not education on taking anti-inflammatories with oxycodone as she was prescribed this for her pain. She was given a short prescription Dilaudid to use for exacerbating symptoms as well as a prescription of MiraLax to prevent constipation. She was given tabs of methocarbamol and told to use with caution with pain medication due to sedation. Patient is upset with being discharged, states that she fully expected to be admitted today, that her grandson and granddaughter that she lives with both have influenza and are unable to take care of her. Patient's respiratory panel is negative for viral illness, overall her lab work is grossly unremarkable, CRP is elevated but this is to be expected postoperatively. Encourage patient to follow-up with orthopedics tomorrow, patient wishes to obtain a cab ride home. Encouraged her to ice, rest, and move her knee fruit currently without exertional activity to prevent stiffness and worsening pain. Patient is appropriate and amenable to discharge home. Vital signs are stable on repeat examination is unremarkable. Patient has been informed of results. Patient has been given strict return to ER precautions for any new or worsening symptoms. Patient understands to follow up closely with outpatient providers as instructed. Patient understands plan and agrees to discharge home. All questions and concerns answered at this time. Social considerations that may affect disposition: Poor support at home, left total knee replacement 8 weeks ago Shared decision making: Consulted with Dr. Stout and Dr. Sharma regarding plan for care Disposition: see below, along with detailed discharge instructions that have been reviewed with the patient as well as indications for ED re-evaluation and additional outpatient follow-up. Questions are addressed and there is agreement with the plan and for follow-up. Patient is appropriate for outpatient management. MIPS: This encounter doesn't have any diagnosis associated with MIPS criteria. I, SAMUEL Gasca, personally performed the services described in the documentation, and it accurately records my words and actions. I collaborated with the ED attending physician for CARLOS level 2, 3, and some level 4s as appropriate. (SIDNEY) -I have had extensive discussion with [employer] APPRENTICE Crew. I have independently reviewed patient's history and physical exam, operative note, labs, x-ray. I have examined the patient, incision is clean, dry and intact, there is no dehiscence, surrounding erythema or drainage, exam is very reassuring. No indication of infection. I discussed with on-call orthopedist, after discussing patient's history, physical exam, imaging we sure the opinion that there is no unexpected finding on patient's exam or labs. We will increase patient's pain regimen and encourage follow-up per instructions at time of discharge Discharge Plan Departure Patient Disposition: Home Clinical Impression: History of arthroplasty of right knee Acute knee pain Qualifiers: Laterality: right Qualified Code(s): M25.561 - Pain in right knee Instructions: DI for Knee Replacement, DI for Knee Effusion, DI for Knee Pain Activity Restrictions/Additional Instructions: *You have been diagnosed with swelling to right knee without any evidence of infection, hardware failure, and without evidence on your blood work and other tests of infection or other abnormality. We will call you if your urine test positive for a bladder infection but there was no abnormal findings today on all of your lab work. I have called in a stronger pain medication for you, Dilaudid, use this sparingly when you have tried Toradol with oxycodone, topical diclofenac, and a muscle relaxer as needed for spasm. Those will make you very tired, please use a walker at all times to prevent falling. Try to move your knee frequently so it does not become stiff more painful. Please use Toradol and oxycodone together as your pain medication for primary use. If you develop a fever, chills, or other symptoms, please come back for another evaluation. Please ice this and rest, we have talked with Orthopedics, it will be happy to see you for follow-up. Please come back if you have worsening of this condition. I have also prescribed for you MiraLax, stool softener which you can take with any drinks and your medications, it should cause any symptoms but will prevent you from becoming constipated or having abdominal pain secondary to the pain medication. CONTROLLED SUBSTANCE DISCHARGE (Narcotic/benzodiazepine/Flexeril/Phenergan) 1. You have been prescribed narcotic medications, it does have acetaminophen/Tylenol/paracetamol in it, DO NOT TAKE MORE THAN 4,00mg in 24 hours of Tylenol. *Tramadol does not contain tylenol. 2. Please understand that we cannot provide further refills of narcotics, benzodiazepines or controlled substances through the ED and her pain management will need to be through your provider. 3. While on these medications you cannot drive or operate heavy machinery. 4. You cannot sign legal documents or perform any duties such as this. 5. As long as you are taking opiate pain medications he should also be taking a stool softener such as Colace, Dulcolax, MiraLAX or prune juice, to help avoid constipation. *What to do: *Please continue to take your regular medications as directed. [x ] New medication prescriptions sent to your pharmacy: [ [facility]] [ ] New medication written as a paper prescription [ ] No new medications given *Please follow up with your primary care provider in 2-3 days, call for an appointment. Let them know you were seen in the Emergency Department and that we asked that you be seen for follow-up. We will electronically transmit a record of today's note if your PCP is in our system *If you do not have a primary care provider please contact [phone] to establish care with one of [facility] primary care providers. *Return to Emergency Department if you should have any new, worsening, or concerning symptoms, such as [fever greater than 101F, chills, worsening pain, persistent vomiting or other bothersome symptoms]. Prescriptions: New hydromorphone [Dilaudid] 2 mg tablet 2 mg PO Q6H PRN (Reason: pain) Qty: 7 0RF polyethylene glycol 3350 [Miralax] 17 gram/dose powder 17 g PO DAILY Qty: 238 0RF methocarbamol 500 mg tablet 500 mg PO Q8H PRN (Reason: muscle spasm.) Qty: 20 0RF Rx Instructions: Do not take this with narcotic pain medicine as it will cause excessive sleepiness, risk for fall No Action lamotrigine 200 mg Tablet 375 mg PO BEDTIME oxycodone 5 mg tablet 5 mg PO Q4H PRN (Reason: pain) Qty: 40 0RF Rx Instructions: postop exempt ondansetron 4 mg tablet,disintegrating 4 mg PO Q8H PRN (Reason: nausea and vomiting) Qty: 7 1RF ketorolac 10 mg tablet 10 mg PO QID 5 Days Qty: 20 0RF aspirin 81 mg tablet,delayed release (DR/EC) 81 mg PO BID Qty: 60 0RF losartan 50 mg Tablet 100 mg PO BEDTIME metformin 500 mg Tablet 500 mg PO BID trazodone 50 mg Tablet 50 - 150 mg PO BEDTIME omeprazole 20 mg Capsule,Delayed Release(Dr/Ec) 20 mg PO BID levothyroxine 200 mcg Tablet 200 mcg PO DAILY pravastatin 20 mg Tablet 20 mg PO BEDTIME lorazepam 1 mg Tablet 1 mg PO BID fluoxetine 60 mg Tablet 60 mg PO BEDTIME ibuprofen 400 mg tablet 400 mg PO Q6H MDD Max 2400 mg per day PRN (Reason: Pain/inflammation) Qty: 90 0RF naloxone [Narcan] 4 mg/actuation spray,non-aerosol 4 mg intranasal Q3M PRN (Reason: opioid overdose) Qty: 2 0RF Rx Instructions: spray 1 dose into ONE nostril; alternate nostrils w each dose until help arrives Referrals: Guillermina Herrera MD [Physician] - Juliann Douglas ARNP [Primary Care Provider] - Stand Alone Forms: Patient Portal/API <John Paul Stout DO - Last Filed: 06/01/22 07:13> Cosign ED Attending Ed Attestation: I was immediately available in the department for consultation. Documentation has been reviewed. I agree with assessment and plan.
--- NOTE | 2022-05-31 13:45 | PC.NURSE ---
Addendum entered by Wendy Lambert R.N. 05/31/22 16:02: Patient was issued walker for ambulation due to patients personal walker not arriving with her by ambulance crew. Addendum entered by Wendy Lambert R.N. 05/31/22 16:00: Patient refused assistance from this RN to get dressed or prepare to be discharged. Patient stated hostile things to this RN and about this RN in attempt to elicit a response including about this RN's character and compassion. Walked patient out of room and to the exit door by registration where door was open, patient then closed door onto this RN. Provider made aware of patient's statements. Original Note: Patient initially needed 2 person assist to bedside commode but stood unassisted with walker after using commode and returned to bed. During initial transfer patient kept repeating I can't do this and this feels different than last time. Patient appeared to experience significant distress with movement of operative knee but once returned to [facility] appeared more comfortable. Provider notified of transfer.
[2022-05-31 13:57] LABS: Appearance Urine UA CLEAR; Bilirubin Urine UA NEGATIVE (NEGATIVE); Color Urine UA YELLOW; Glucose Urine UA NEGATIVE (Negative); Ketones Urine UA NEGATIVE (NEGATIVE); Leukocyte Esterase Urine UA TRACE (NEGATIVE); Nitrite Urine UA NEGATIVE (Negative); Occult Blood Urine UA NEGATIVE (Negative); Protein Urine UA NEGATIVE (Negative); Specific Gravity Urine UA <=1.005 (1.000-1.035); Urobilinogen Urine UA 0.2 E.U./dL (0.2)
[2022-05-31] MEDS: KETOROLAC 30 MG/ML VIAL 15 MG IV (13:57)
[2022-05-31] MEDS: LIDOCAINE PATCH 1 EACH ADH..PATCH TOP (13:58)
[2022-05-31] MEDS: OXYCODONE/ACETAMINOPHEN 5/325 TABLET 1 TAB PO (13:58)
[2022-05-31 13:59] LABS: pH Urine UA 5.5 (4.5-8.0)
[2022-05-31 14:01] LABS: Add Manual Diff / Slide Review NO; Basophils Absolute Auto 100 /uL (0-100); Basophils Percent Auto 0.6 % (0-2); Eosinophils Absolute Auto 100 /uL (0-450); Eosinophils Percent Auto 1.2 % (2-4); Hematocrit 28.2 % (36-46); Hemoglobin 9.4 g/dL (12.0-16.0); Lymphocytes Absolute Auto 2200 /uL (1100-4500); Lymphocytes Percent Auto 26.2 % (25-40); Mean Corpuscular HGB Conc 33.4 % (30-36); Mean Corpuscular Hemoglobin 26.1 PG (26-34); Mean Corpuscular Volume 78.3 fL (80-100); Monocytes Absolute Auto 1100 /uL (0-900); Monocytes Percent Auto 13.2 % (3-14); Neutrophils Absolute Auto 4900 /uL (1500-7000); Neutrophils Percent Auto 58.8 % (50-75); Platelet Count 239 X10^3/uL (150-400); Red Blood Cell Count 3.61 X10^6/uL (4.0-5.2); Red Cell Distribution Width 15.6 % (11.6-14.8); White Blood Cell Count 8.4 X10^3/uL (4.5-11.0)
[2022-05-31 14:03] LABS: Bacteria Urine None Seen; Culture Indicated Urine Cult Not Indicated; RBC Urine None Seen (0-5/HPF); WBC Urine 0-1/HPF (0-5/HPF)
[2022-05-31 14:13] LABS: BUN Creatinine Ratio 25.3 (6-22); Blood Urea Nitrogen 19 mg/dL (7-17); Calcium 8.8 mg/dL (8.4-10.2); Carbon Dioxide 30 mmol/L (22-32); Chloride 102 mmol/L (98-107); Estimated Glomerular Filt Rate > 60 mL/min (>60); Glucose 136 mg/dL (80-110); HEMOLYSIS < 15 (0-50); Sodium 137 mmol/L (137-145)
[2022-05-31 14:27] LABS: C-Reactive Protein Quant 17.7 mg/dL (<1.0); Procalcitonin 0.08 ng/mL (<0.5)
[2022-05-31 14:30] LABS: Influenza A - CEPHEID Flu A NEGATIVE (NEGATIVE); Influenza B - CEPHEID Flu B NEGATIVE (NEGATIVE); Respiratory Syncytial Virus Negative (Negative)
[2022-05-31 14:32] LABS: COVID-19 CEPHEID 4-PLEX PCR Negative (Negative)
== END 2022-05-31 16:01 | disposition home or self-care (01) ==
PROVIDERS: Emergency Provider Nurse Practitioner Critical Care Medicine; PCP Registered Nurse
DX: M25.561 Pain in right knee (principal); Z79.899 Other long term (current) drug therapy; Z20.822 Contact with and (suspected) exposure to COVID-19; Z96.651 Presence of right artificial knee joint
CPT/HCPCS: 0241U; 73562; 80048; 81001; 84145; 85025; 86140; 96374; 99284; J1885

== ENCOUNTER 2022-06-09 18:16 | Emergency (ER) | payer OTHER, SELFPAY ==
[2022-05-29 16:53] VITALS: BMI 34.7
[2022-06-09] VITALS (16 sets, daily range): BP systolic 149–181; BP diastolic 82–106; PULSE 60–74; RESP 14–22; TEMP 36.6; O2SAT 93–99; BMI 33.4
--- NOTE | 2022-06-09 18:30 | DI.RAD.S_ITS ---
PROCEDURE: XR CHEST 1V INDICATIONS: chest pain TECHNIQUE: One view of the chest was acquired. COMPARISON: None. FINDINGS: Surgical changes and devices: Pacemaker. Lungs and pleura: Lungs are clear. No pleural effusions or pneumothorax. Mediastinum: Mediastinal contours appear normal. Heart size is minimally prominent. Bones and chest wall: No suspicious bony lesions. Overlying soft tissues appear unremarkable. IMPRESSION: No acute pulmonary process. Dictated by: Estefany Cadena M.D. on 06/09/2022 at 19:40 Approved by: Estefany Cadena M.D. on 06/09/2022 at 19:41
--- NOTE | 2022-06-09 18:31 | DI.US.S_ITS ---
PROCEDURE: US PERIPH VENOUS LOW EXTREM RT INDICATIONS: leg pain TECHNIQUE: Real-time imaging, as well as color and pulse Doppler interrogation, were performed of the lower extremity deep veins from the inguinal ligament to the popliteal fossa. COMPARISON: None. FINDINGS: The common femoral, femoral and popliteal veins are normally compressible, and free of intraluminal thrombus. Color and pulse Doppler demonstrate normal phasic intraluminal flow. There is normal augmentation response to distal compression maneuver. IMPRESSION: Negative for deep venous thrombosis. Dictated by: David Mcbride M.D. on 06/09/2022 at 18:14 Approved by: David Mcbride M.D. on 06/09/2022 at 18:14
[2022-06-09 19:19] LABS: COVID19 -Nasal RAPID Negative (Negative)
[2022-06-09 19:50] LABS: Add Manual Diff / Slide Review NO; Basophils Absolute Auto 100 /uL (0-100); Basophils Percent Auto 0.9 % (0-2); Eosinophils Absolute Auto 200 /uL (0-450); Eosinophils Percent Auto 2.8 % (2-4); Hematocrit 31.7 % (36-46); Hemoglobin 10.3 g/dL (12.0-16.0); Lymphocytes Absolute Auto 2500 /uL (1100-4500); Lymphocytes Percent Auto 29.6 % (25-40); Mean Corpuscular HGB Conc 32.6 % (30-36); Mean Corpuscular Hemoglobin 25.1 PG (26-34); Mean Corpuscular Volume 77.1 fL (80-100); Monocytes Absolute Auto 600 /uL (0-900); Monocytes Percent Auto 7.5 % (3-14); Neutrophils Absolute Auto 5000 /uL (1500-7000); Neutrophils Percent Auto 59.2 % (50-75); Platelet Count 428 X10^3/uL (150-400); Red Blood Cell Count 4.11 X10^6/uL (4.0-5.2); Red Cell Distribution Width 15.8 % (11.6-14.8); White Blood Cell Count 8.5 X10^3/uL (4.5-11.0)
--- NOTE | 2022-06-09 19:53 | ED.CHESTPAIN ---
HPI - Chest Pain General Chief Complaint: Chest Pain Stated Complaint: chest pain, bilateral leg pain but especially rt Time Seen by Provider: 06/09/22 19:31 Source: patient Mode of arrival: Wheelchair History of Present Illness HPI narrative: 67-year-old woman with a history of pacemaker placement that she states is set at a rate of 70, hypothyroidism, diabetes, sleep apnea, bipolar disorder, hypertension, hyperlipidemia who recently had her right knee replaced. She had her left knee replaced 2 months ago and the surgery went very well and she was able to climb stairs within a week. She decided to go ahead with the right knee replacement rather quickly. Surgery for this was on May 29. She comes in today complaining that something is terribly wrong. She notes that her leg is more swollen, significantly more painful with direct comparison to the 1 2 months ago. She feels that she is sick, blurry, describes significant weakness with difficulty moving, increasing nausea and she is concerned that her heart rate is consistently in the 50-60s rather than what her pacer should be pacing her at. 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 She does not describe fevers, abdominal pain, diarrhea, headaches. She notes that for the past number of days she is been taking only Tylenol for her pain. Apparently she was feeling more fuzzy with the oxycodone that has been given and she caught herself almost taking an extra dose. This frightened her so she disposed of the remainder of the narcotic prescription. Related Data Home Medications Medication Instructions Recorded Confirmed fluoxetine 60 mg tablet 60 mg PO BEDTIME 03/10/22 06/09/22 levothyroxine 200 mcg tablet 200 mcg PO DAILY 03/10/22 06/09/22 lorazepam 1 mg tablet 1 mg PO BID 03/10/22 06/09/22 losartan 50 mg tablet 100 mg PO BEDTIME 03/10/22 06/09/22 omeprazole 20 mg capsule,delayed 20 mg PO BID 03/10/22 05/29/22 release pravastatin 20 mg tablet 20 mg PO BEDTIME 03/10/22 06/09/22 trazodone 50 mg tablet 50 - 150 mg PO BEDTIME 03/10/22 06/09/22 lamotrigine 200 mg tablet 375 mg PO BEDTIME 05/27/22 06/09/22 hydroxyzine pamoate 25 mg capsule mg 06/09/22 metformin 500 mg tablet,extended 1,000 mg PO 06/09/22 release 24 hr Previous Rx's Medication Instructions Recorded ibuprofen 400 mg tablet 400 mg PO Q6H PRN 04/04/22 Pain/inflammation #90 tabs naloxone 4 mg/actuation nasal 4 mg intranasal Q3M PRN opioid 04/05/22 spray (Narcan) overdose #2 ea aspirin 81 mg tablet,delayed 81 mg PO BID #60 tabs 05/29/22 release ondansetron 4 mg disintegrating 4 mg PO Q8H PRN nausea and 05/29/22 tablet vomiting #7 tabs methocarbamol 500 mg tablet 500 mg PO Q8H PRN muscle spasm. 05/31/22 #20 tabs polyethylene glycol 3350 17 17 g PO DAILY constipation #238 05/31/22 gram/dose oral powder (Miralax) grams oxycodone-acetaminophen 5 mg-325 1 tab PO Q6H PRN pain #14 tabs 06/10/22 mg tablet Allergies Allergy/AdvReac Type Severity Reaction Status Date / Time No Known Drug Allergies Allergy Verified 06/09/22 18:26 Review of Systems Review of Systems Narrative: Remainder of complete review of systems is otherwise unremarkable except for that included in the HPI. Patient History Medical History Anxiety Bipolar disorder Chronic cough Depression Diabetes Fibromyalgia GERD (gastroesophageal reflux disease) HLD (hyperlipidemia) HTN (hypertension) Hypothyroidism ALDO on CPAP Pacemaker (04/28/13) PTSD (post-traumatic stress disorder) Sciatica Surgical History History of bilateral tubal ligation History of gynecologic surgery History of nasal surgery History of total left knee replacement (04/03/22) Hx of arthroscopy of right knee Hx of bilateral breast reduction surgery Hx of bilateral cataract extraction Hx of cholecystectomy Hx of tonsillectomy S/P epidural steroid injection S/P excision of lipoma Social History household members: children Smoking Status: Former smoker alcohol intake: former Smoking Status: Former smoker alcohol intake frequency: 0-2 drinks per day Substance Use Type: marijuana Exam Initial Vital Signs Initial Vital Signs: Vital Signs Temperature 98 F 06/09/22 18:23 Pulse Rate 70 06/09/22 18:23 Respiratory Rate 17 06/09/22 18:23 Blood Pressure 177/97 H 06/09/22 18:23 Pulse Oximetry 98 06/09/22 18:23 Oxygen Delivery Method 06/09/22 18:23 General: Weak and chronically ill appearing. Somewhat tearful as it has been a very long day and her pain continues to increase. HEENT: Moist mucous membranes, normal sclera with reactive pupils, Neck: No JVD, supple Respiratory: Lungs are clear to auscultation, no wheezing no rales no rhonchi. Full and symmetrical air movement Cardiac: Regular rate and rhythm no murmurs no bruits Abdomen: Soft, nontender, good bowel tones, no flank pain Skin: Warm and dry, no rashes Neurologic: No acute neurologic abnormality, she does complain of paresthesia along the bottom of her right foot but there is quite a bit of postoperative swelling with bruising in that area as well Extremities: Left knee with nicely healed scar. Right knee with surgical dressing still in place, the entire right leg is somewhat more swollen than the left with ecchymosis trailing down into her ankle and the dorsum of her foot. She does have palpable pulses. Psych: Cooperative, appropriate insight and affect, frightened with her progressive constellation of symptoms. Course Orders Ordered: Hydromorphone HCl (Hydromorphone 0.5 Mg Inj) 0.5 mg IV Q15MIN PRN PRN Reason: Pain, Last Admin: 06/09/22 20:30 Dose: 0.5 mg Documented By: TEJINDER Discontinued Medications Hydroxyzine Pamoate (Hydroxyzine Pamoate 25 Mg Capsule) 50 mg PO NOW ONE Stop: 06/09/22 23:59 Last Admin: 06/10/22 00:03 Dose: 50 mg Documented By: TEJINDER Sodium Chloride (Normal Saline 0.9%) 1,000 mls @ 1,000 mls/hr IV BOLUS ONE Stop: 06/09/22 21:11 Last Infusion: 06/09/22 22:31 Dose: 0 mls/hr Documented By: Admin: 06/09/22 20:56 Dose: 1,000 mls/hr Documented By: TEJINDER Lorazepam (Lorazepam 2 Mg/Ml Inj) 1 mg IV NOW ONE Stop: 06/09/22 21:40 Last Admin: 06/09/22 21:48 Dose: 1 mg Documented By: TEJINDER Ondansetron HCl (Ondansetron 4 Mg/2 Ml Inj) 4 mg IV NOW ONE Stop: 06/09/22 20:13 Last Admin: 06/09/22 20:57 Dose: 4 mg Documented By: TEJINDER Oxycodone/Acetaminophen (Oxycodone/Acetaminophen 5/325 Tablet) 2 tab PO NOW ONE Stop: 06/09/22 23:59 Last Admin: 06/10/22 00:03 Dose: 2 tab Documented By: TEJINDER Vital Signs Vital signs: Vital Signs - 8 hr 06/09/22 22:30 06/09/22 22:30 06/09/22 23:00 Pulse Rate 69 Respiratory Rate 16 Blood Pressure 149/82 H 154/83 H Pulse Oximetry 93 Oxygen Delivery Method Room Air Oxygen Flow Rate 06/09/22 23:00 06/09/22 23:30 06/09/22 23:30 Pulse Rate 74 71 Respiratory Rate 16 18 Blood Pressure 155/96 H Pulse Oximetry 95 94 Oxygen Delivery Method Room Air Room Air Oxygen Flow Rate 06/10/22 00:00 06/10/22 00:01 06/10/22 00:01 Pulse Rate 69 69 Respiratory Rate 19 18 Blood Pressure 160/75 H Pulse Oximetry 94 94 Oxygen Delivery Method Room Air Room Air Oxygen Flow Rate 06/10/22 00:30 06/10/22 00:30 06/10/22 01:00 Pulse Rate 69 Respiratory Rate Blood Pressure 152/85 H 152/80 H Pulse Oximetry 93 Oxygen Delivery Method Room Air Oxygen Flow Rate 06/10/22 01:00 06/10/22 01:30 06/10/22 01:30 Pulse Rate 69 69 Respiratory Rate Blood Pressure 146/84 H Pulse Oximetry 94 94 Oxygen Delivery Method CPAP CPAP Oxygen Flow Rate 2 2 06/10/22 02:00 06/10/22 02:00 06/10/22 02:30 Pulse Rate 69 69 Respiratory Rate Blood Pressure 137/73 Pulse Oximetry 93 94 Oxygen Delivery Method CPAP CPAP Oxygen Flow Rate 2 2 06/10/22 03:00 06/10/22 03:18 06/10/22 03:18 Pulse Rate 75 70 Respiratory Rate Blood Pressure 145/88 H Pulse Oximetry 96 Oxygen Delivery Method Oxygen Flow Rate 06/10/22 03:30 06/10/22 04:00 06/10/22 04:01 Pulse Rate 69 69 Respiratory Rate Blood Pressure 115/63 Pulse Oximetry 94 96 Oxygen Delivery Method Oxygen Flow Rate 06/10/22 04:01 06/10/22 04:30 06/10/22 05:00 Pulse Rate 69 69 Respiratory Rate Blood Pressure 147/84 H Pulse Oximetry 96 95 Oxygen Delivery Method CPAP Oxygen Flow Rate 2 06/10/22 05:00 Pulse Rate 69 Respiratory Rate Blood Pressure Pulse Oximetry 96 Oxygen Delivery Method CPAP Oxygen Flow Rate 2 MDM - Chest Pain Lab Data 06/09/22 19:39 06/09/22 19:39 Labs: Lab Results 06/09/22 06/09/22 06/09/22 Range/Units 18:30 19:39 19:39 WBC 8.5 (4.5-11.0) X10^3/uL RBC 4.11 (4.0-5.2) X10^6/uL Hgb 10.3 L (12.0-16.0) g/dL Hct 31.7 L (36-46) % MCV 77.1 L (80-100) fL MCH 25.1 L (26-34) PG MCHC 32.6 (30-36) % RDW 15.8 H (11.6-14.8) % Plt Count 428 H (150-400) X10^3/uL Neut % (Auto) 59.2 (50-75) % Lymph % (Auto) 29.6 (25-40) % [place] % (Auto) 7.5 (3-14) % Eos % (Auto) 2.8 (2-4) % Baso % (Auto) 0.9 (0-2) % Neut # (Auto) 5000 (8401-5889) /uL Lymph # (Auto) 2500 (7803-0323) /uL [place] # (Auto) 600 (0-900) /uL Eos # (Auto) 200 (0-450) /uL Baso # (Auto) 100 (0-100) /uL ESR (0-20) MM/HR PT 14.1 H (10.1-12.7) SECONDS INR 1.2 (0.9-1.3) APTT 32 (26-36) SECONDS Sodium (137-145) mmol/L Potassium (3.4-5.1) mmol/L Chloride (98-107) mmol/L Carbon Dioxide (22-32) mmol/L BUN (7-17) mg/dL Creatinine (0.52-1.04) mg/dL Estimated GFR (>60) mL/min BUN/Creatinine Ratio (6-22) Glucose (80-110) mg/dL Calcium (8.4-10.2) mg/dL Magnesium (1.6-2.3) mg/dL Total Bilirubin (0.2-1.3) mg/dL AST (14-36) IU/L ALT (<35) IU/L Alkaline Phosphatase (38-126) U/L Total Creatine Kinase (30-135) U/L CK-MB (CK-2) CK-MB (CK-2) Rel Index Troponin I (0.01-0.034) ng/mL C-Reactive Protein (<1.0) mg/dL NT-Pro-B Natriuret Pep (<125) pg/mL Total Protein (6.3-8.2) g/dL Albumin (3.5-5.0) g/dL Globulin (1.7-4.1) g/dL Albumin/Globulin Ratio (1.0-2.8) Lipase (23-300) U/L TSH (0.47-4.68) uIU/mL SARS-CoV-2 (PCR) Negative (Negative) 06/09/22 06/09/22 06/09/22 Range/Units 19:39 19:39 19:39 WBC (4.5-11.0) X10^3/uL RBC (4.0-5.2) X10^6/uL Hgb (12.0-16.0) g/dL Hct (36-46) % MCV (80-100) fL MCH (26-34) PG MCHC (30-36) % RDW (11.6-14.8) % Plt Count (150-400) X10^3/uL Neut % (Auto) (50-75) % Lymph % (Auto) (25-40) % [place] % (Auto) (3-14) % Eos % (Auto) (2-4) % Baso % (Auto) (0-2) % Neut # (Auto) (5004-9581) /uL Lymph # (Auto) (1267-4201) /uL [place] # (Auto) (0-900) /uL Eos # (Auto) (0-450) /uL Baso # (Auto) (0-100) /uL ESR 41 H (0-20) MM/HR PT (10.1-12.7) SECONDS INR (0.9-1.3) APTT (26-36) SECONDS Sodium 137 (137-145) mmol/L Potassium 3.9 (3.4-5.1) mmol/L Chloride 100 (98-107) mmol/L Carbon Dioxide 27 (22-32) mmol/L BUN 18 H (7-17) mg/dL Creatinine 0.86 (0.52-1.04) mg/dL Estimated GFR > 60 (>60) mL/min BUN/Creatinine Ratio 20.9 (6-22) Glucose 96 (80-110) mg/dL Calcium 9.5 (8.4-10.2) mg/dL Magnesium 1.8 (1.6-2.3) mg/dL Total Bilirubin 0.8 (0.2-1.3) mg/dL AST 28 (14-36) IU/L ALT 22 (<35) IU/L Alkaline Phosphatase 147 H (38-126) U/L Total Creatine Kinase 48 (30-135) U/L CK-MB (CK-2) TNP CK-MB (CK-2) Rel Index TNP Troponin I < 0.012 (0.01-0.034) ng/mL C-Reactive Protein 3.2 H (<1.0) mg/dL NT-Pro-B Natriuret Pep (<125) pg/mL Total Protein 7.8 (6.3-8.2) g/dL Albumin 4.1 (3.5-5.0) g/dL Globulin 3.7 (1.7-4.1) g/dL Albumin/Globulin Ratio 1.1 (1.0-2.8) Lipase 33 (23-300) U/L TSH (0.47-4.68) uIU/mL SARS-CoV-2 (PCR) (Negative) 06/09/22 06/09/22 Range/Units 19:39 19:39 WBC (4.5-11.0) X10^3/uL RBC (4.0-5.2) X10^6/uL Hgb (12.0-16.0) g/dL Hct (36-46) % MCV (80-100) fL MCH (26-34) PG MCHC (30-36) % RDW (11.6-14.8) % Plt Count (150-400) X10^3/uL Neut % (Auto) (50-75) % Lymph % (Auto) (25-40) % [place] % (Auto) (3-14) % Eos % (Auto) (2-4) % Baso % (Auto) (0-2) % Neut # (Auto) (4043-1313) /uL Lymph # (Auto) (0874-7157) /uL [place] # (Auto) (0-900) /uL Eos # (Auto) (0-450) /uL Baso # (Auto) (0-100) /uL ESR (0-20) MM/HR PT (10.1-12.7) SECONDS INR (0.9-1.3) APTT (26-36) SECONDS Sodium (137-145) mmol/L Potassium (3.4-5.1) mmol/L Chloride (98-107) mmol/L Carbon Dioxide (22-32) mmol/L BUN (7-17) mg/dL Creatinine (0.52-1.04) mg/dL Estimated GFR (>60) mL/min BUN/Creatinine Ratio (6-22) Glucose (80-110) mg/dL Calcium (8.4-10.2) mg/dL Magnesium (1.6-2.3) mg/dL Total Bilirubin (0.2-1.3) mg/dL AST (14-36) IU/L ALT (<35) IU/L Alkaline Phosphatase (38-126) U/L Total Creatine Kinase (30-135) U/L CK-MB (CK-2) CK-MB (CK-2) Rel Index Troponin I (0.01-0.034) ng/mL C-Reactive Protein (<1.0) mg/dL NT-Pro-B Natriuret Pep 768 H (<125) pg/mL Total Protein (6.3-8.2) g/dL Albumin (3.5-5.0) g/dL Globulin (1.7-4.1) g/dL Albumin/Globulin Ratio (1.0-2.8) Lipase (23-300) U/L TSH 0.348 L (0.47-4.68) uIU/mL SARS-CoV-2 (PCR) (Negative) Imaging Data US - DVT: Radiologist's Impression: Negative for DVT Chest x-ray: Radiologist's Impression: No acute pulmonary process ECG Data Interpretation: Atrial paced at a rate of 62 MDM Narrative Medical decision making narrative: CC: Severe right lower extremity pain postop right knee replacement May 29 with multiple other nonspecific complaints and concerns that her pacemaker is not working. Complicating co-morbidities: Bipolar disorder, anxiety, lives alone, limited mobility secondary to knee replacement surgery Corroborating data: Data collected from: patient, Social determinants of health that may influence the patients condition: Anxiety, independent living, pays caregiver to come help her- will not have a ride home from the emergency room until tomorrow Medical records reviewed: Surgical notes reviewed Differential considered: DVT, postoperative infection, pulmonary embolism, acute coronary syndrome, congestive heart failure, pacer malfunction, anxiety, inadequate pain control Exam documented above, pertinent findings include: Right leg is definitely more swollen than left however looks entirely appropriate for approximately 11 days postop. Heart and lungs are unremarkable. Lab Test results independently reviewed as above. Pertinent findings: CBC is unremarkable with increasing H&H postop. Chemistries show the C-reactive protein is coming down as would be expected postop suggesting absence of infection. TSH is slightly suppressed she is on exogenous thyroid BNP is slightly elevated Independently reviewed EKG as above Imaging studies independently reviewed: Chest x-ray shows no acute process, right lower extremity ultrasound shows no DVT, chest CTA shows no evidence of pulmonary embolism but does show enlarged pulmonary arteries suggestive of pulmonary artery hypertension Consultations: Treatments: Fluids, Zofran, pain control with parenteral narcotics as well as parenteral benzodiazepines for anxiety. Re-evaluations: Patient is sleeping comfortably after a mg of IV Ativan. There is no evidence of acute infection, no suggestion of DVT, pulmonary embolism, infected surgical site. No evidence of acute coronary syndrome or other significant etiology that would require further workup or hospitalization. I do not have a full explanation for the complaints that Ms. Culver is noticing however I believe that anxiety and inadequately controlled pain after she threw away her pain medications are likely contributing. Patient does not have a ride home until the morning, we will allow her to stay in the emergency department and will evaluate when she wakes up later this morning. 615am patient is re-evaluated after sleeping soundly for the last number of hours. Her negative workup including lack of infection, no DVT and sleep after adequate pain control were all reviewed. Reviewed with her also findings from pacemaker rep. Explained to her the atrial sensed and ventricular sensed modes. She currently is in a fully paced atrial sensing mode at a rate of 70 and is feeling better this morning. I believe she does need better pain control for her right knee replacement. This morning I am going to give her ibuprofen and Percocet and a prescription for 12 additional Percocet to use over the next couple of days to help with the severe pain. Will ask her to follow-up with her primary care provider as well as her orthopedic provider. Reassurance is given, questions are answered and she is safe for discharge home Disposition: see below, along with detailed discharge instructions that have been reviewed with patient as well as indications for ED re-evaluation and additional outpatient follow up Discharge Plan Departure Patient Disposition: Home Clinical Impression: Post-operative pain, Anxiety Activity Restrictions/Additional Instructions: Thank you for coming in tonight Fortunately, I did not find any evidence of a blood clot in your leg. There is also no evidence for infection or complications with your knee surgery. I think that you do in fact need better pain control and that will likely help you be more mobile, in less pain, less anxious and better able to sleep. Using 400 mg of ibuprofen (2 [id number] pills) and 1 Tylenol every 6 hours can be very helpful in controlling pain. For severe pain you can use 400 mg of ibuprofen and Percocet. Prescription for Percocet has been electronically transmitted to [facility] in [place] free to warehouse picker later today We did interrogate your pacemaker. It is working as programmed. It does have different modes that it can flip into as programmed. Was in 1 mode when you rate is in the 60s and now is back in what appears to be its more default mode functioning to pace every single be at a rate of 70. There is no evidence of heart attack or pacemaker dysfunction at this time. Please make sure you take all of your morning medications when you get home this morning If you find that you are getting worse or develop any new symptoms, please feel free to return to the emergency department for further evaluation. Prescriptions: New oxycodone-acetaminophen 5-325 mg tablet 1 tab PO Q6H PRN (Reason: pain) Qty: 14 0RF No Action lamotrigine 200 mg Tablet 375 mg PO BEDTIME ondansetron 4 mg tablet,disintegrating 4 mg PO Q8H PRN (Reason: nausea and vomiting) Qty: 7 1RF aspirin 81 mg tablet,delayed release (DR/EC) 81 mg PO BID Qty: 60 0RF metformin 500 mg tablet extended release 24 hr 1,000 mg PO Label Comments: take 2 tablets by mouth twice a day with [employer] hydroxyzine pamoate 25 mg capsule Label Comments: take 1 capsule by mouth every 6 hours if needed for muscle spasm pain or nausea losartan 50 mg Tablet 100 mg PO BEDTIME trazodone 50 mg Tablet 50 - 150 mg PO BEDTIME omeprazole 20 mg Capsule,Delayed Release(Dr/Ec) 20 mg PO BID levothyroxine 200 mcg Tablet 200 mcg PO DAILY pravastatin 20 mg Tablet 20 mg PO BEDTIME lorazepam 1 mg Tablet 1 mg PO BID fluoxetine 60 mg Tablet 60 mg PO BEDTIME ibuprofen 400 mg tablet 400 mg PO Q6H MDD Max 2400 mg per day PRN (Reason: Pain/inflammation) Qty: 90 0RF naloxone [Narcan] 4 mg/actuation spray,non-aerosol 4 mg intranasal Q3M PRN (Reason: opioid overdose) Qty: 2 0RF Rx Instructions: spray 1 dose into ONE nostril; alternate nostrils w each dose until help arrives polyethylene glycol 3350 [Miralax] 17 gram/dose powder 17 g PO DAILY Qty: 238 0RF methocarbamol 500 mg tablet 500 mg PO Q8H PRN (Reason: muscle spasm.) Qty: 20 0RF Rx Instructions: Do not take this with narcotic pain medicine as it will cause excessive sleepiness, risk for fall Referrals: Juliann Douglas ARNP [Primary Care Provider] - Stand Alone Forms: Patient Portal/API
[2022-06-09 19:57] LABS: INR 1.2 (0.9-1.3); Prothrombin Time 14.1 SECONDS (10.1-12.7)
[2022-06-09 19:59] LABS: PTT Partial Thromboplastin Tim 32 SECONDS (26-36)
[2022-06-09 20:22] LABS: Alanine Aminotransferase 22 IU/L (<35); Albumin 4.1 g/dL (3.5-5.0); Albumin Globulin Ratio 1.1 (1.0-2.8); Alkaline Phosphatase 147 U/L (38-126); Aspartate Aminotransferase 28 IU/L (14-36); BUN Creatinine Ratio 20.9 (6-22); Bilirubin Total 0.8 mg/dL (0.2-1.3); Blood Urea Nitrogen 18 mg/dL (7-17); Calcium 9.5 mg/dL (8.4-10.2); Carbon Dioxide 27 mmol/L (22-32); Chloride 100 mmol/L (98-107); Creatine Kinase 48 U/L (30-135); Estimated Glomerular Filt Rate > 60 mL/min (>60); Globulin 3.7 g/dL (1.7-4.1); Glucose 96 mg/dL (80-110); HEMOLYSIS < 15 (0-50); Lipase 33 U/L (23-300); Magnesium 1.8 mg/dL (1.6-2.3); Potassium 3.9 mmol/L (3.4-5.1); Sodium 137 mmol/L (137-145); Total Protein 7.8 g/dL (6.3-8.2)
--- NOTE | 2022-06-09 20:26 | DI.CT.S_ITS ---
PROCEDURE: CT ANGIO CHEST PE PROTOCOL INDICATIONS: post op, V tach, TECHNIQUE: After the administration of intravenous contrast, 2 mm thick sections acquired from the pulmonary apices to the posterior costophrenic angles. 3-dimensional maximum intensity projection (MIP) coronal and sagittal reformats were then acquired through the thorax. For radiation dose reduction, the following was used: automated exposure control, adjustment of mA and/or kV according to patient size. COMPARISON: None. FINDINGS: Image quality: There is metallic streak artifact secondary to patient's left chest wall pacemaker. Pulmonary arteries: Pulmonary arteries demonstrate no intraluminal filling defects to suggest central pulmonary embolism. There is enlargement of the pulmonary arteries, with the main pulmonary artery measuring up to 3.2 cm suggestive of pulmonary arterial hypertension. Lower Neck: No lymphadenopathy by size criteria. Thyroid: Visualized thyroid demonstrates no discrete nodules. Axillae: No lymphadenopathy by size criteria. Chest Wall: Unremarkable. Bones: Visualized osseous structures demonstrate no suspicious lesions. Lungs and Airways: No acute consolidation. There is mild dependent atelectasis bilaterally. The trachea and central airways are patent. Pleura: No pneumothorax or pleural effusions. Heart: Heart size is enlarged. No pericardial effusion. Thoracic Vessels: The thoracic aorta is normal in size. Mediastinum and Valerie: No lymphadenopathy by size criteria. Esophagus: There is mild concentric wall thickening in the distal esophagus. No hiatal hernia. Abdomen: Visualized upper abdomen demonstrates surgical absence of the gallbladder. IMPRESSION: 1. No evidence of pulmonary embolism. 2. Mild dependent atelectasis in the lungs without acute airspace consolidation. 3. Mild concentric wall thickening in the distal esophagus suggestive of a mild esophagitis. Dictated by: Sabas Ordoñez M.D. on 06/09/2022 at 21:50 Approved by: Sabas Ordoñez M.D. on 06/09/2022 at 21:53
[2022-06-09] MEDS: HYDROMORPHONE 0.5 MG INJ IV (20:30)
[2022-06-09 20:33] LABS: Erythrocyte Sedimentation Rate 41 MM/HR (0-20); Troponin I < 0.012 ng/mL (0.01-0.034)
[2022-06-09 20:34] LABS: C-Reactive Protein Quant 3.2 mg/dL (<1.0)
[2022-06-09 20:41] LABS: NT-proBNP (BNP-Adult 18+) 768 pg/mL (<125)
[2022-06-09] MEDS: SODIUM CHLORIDE 0.9% 1,000 ML 1000 ML IV (20:56)
[2022-06-09] MEDS: ONDANSETRON 4 MG/2 ML INJ IV (20:57)
[2022-06-09 21:32] LABS: Thyroid Stimulating Hormone 0.348 uIU/mL (0.47-4.68)
[2022-06-09] MEDS: LORazepam 2 MG/ML INJ 1 MG IV (21:48)
[2022-06-10] VITALS (17 sets, daily range): BP systolic 115–160; BP diastolic 63–91; PULSE 69–75; RESP 18–19; O2SAT 93–97
[2022-06-10] MEDS: OXYCODONE/ACETAMINOPHEN 5/325 TABLET 2 TAB PO (00:03)
[2022-06-10] MEDS: hydrOXYzine pamoate 25 MG CAPSULE 50 MG PO (00:03)
[2022-06-10] MEDS: IBUPROFEN 400 MG TABLET PO (06:45)
[2022-06-10] MEDS: OXYCODONE/ACETAMINOPHEN 5/325 TABLET 1 TAB PO (06:46)
== END 2022-06-10 06:52 | disposition home or self-care (01) ==
PROVIDERS: Emergency Medicine; Emergency Provider Emergency Medicine; PCP Registered Nurse
DX: G89.18 Other acute postprocedural pain (principal); F41.9 Anxiety disorder, unspecified; R07.9 Chest pain, unspecified; Z20.822 Contact with and (suspected) exposure to COVID-19; Z95.0 Presence of cardiac pacemaker; Z96.652 Presence of left artificial knee joint
CPT/HCPCS: 36415; 71045; 71275; 80053; 82550; 83690; 83735; 83880; 84443; 84484; 85025; 85610; 85651; 85730; 86140; 87635; 93005; 93971; 96361; 96374; 96375; 99284; C9803; J1170; J2060; J2405; Q9967